=== PATIENT | male | born 1960 | race Caucasian/White ===

== ENCOUNTER → 2016-10-31 | Outpatient (CLI) | payer SELFPAY ==
[~2016-10-31] MED LIST: AMBIEN 10MG TAB10 MG PO; ATIVAN GENERIC 11 MG PO; ATIVAN0.5 MG PO; CIPRO 500MG TA500 MG PO; COZAAR50 MG OR; FLEXERIL10 MG PO; HYDROCODONE-APA1 TA1 PO; KEFLEX 500MG.500 MG PO; LEVAQUIN500 MG PO; LEVAQUIN750 MG PO; LISINOPRIL AND1 TAB PO; LISINOPRIL/HCTZ1 TA3 FT; LORTAB 5/500 501 TAB PO; MEDROL 4MG. DOSE4 MG PO; NAPROSYN 500MG500 MG PO; NORCO 325 MG-51 TAB PO; OMEPRAZOLE20 MG PO; PERCOCET 10 MG1 EACH PO; PERCOCET 5/3251 EACH PO; PHENERGAN25 M3 PO; PREDNISONE 20MG20 MG PO; TESSALON PERLE100 MG PO; ULTRAM ER100 MG PO; VICODIN 5/500 T1 TAB PO; VOLTAREN75 MG PO; XANAX 1MG TABLET1 MG PO; XANAX0.5 MG PO; XANAX1 M1 PO; ZOFRAN4 MG PO
[2016-10-31 14:51] LABS: HEMOGLOBIN 15.3 g/dL (14.1-18.0); LYMPH # 1.3 K/mm3 (0.7-4.5); LYMPH % 26.7 % (10-50)
[2016-10-31 15:29] LABS: AMPHETAMINES/METAMPHETAMINES NEGATIVE ng/mL (<1000)
[2016-10-31 15:47] LABS: BUN 7 mg/dL (7-18)
[2016-10-31 16:02] LABS: GFR (ESTIMATED) 100 ML/MIN (>60)
== END ==
LOC: LAB 13:49
PROVIDERS: Emergency Medicine
DX: Z79.899 Other long term (current) drug therapy (principal); I10 Essential (primary) hypertension

== ENCOUNTER → 2017-07-08 | Emergency (ER) | payer MEDICARE ==
[~2017-07-08] VITALS: Ht 190.5 cm; Wt 99.8 kg
[~2017-07-08] MED LIST changes: +PREDNISONE20 MG PO; +PROMETHAZINE D120 ML PO; +TESSALON PERLE100 M1 PO; +TYLENOL WITH CO1 TA1 PO
--- NOTE | 2017-07-08 09:25 | Emergency Room Report ---
History of Present Illness Time Seen by MD Mckeon Presenting Problem in Triage Pt arrived:Walked Presenting Problem:COUGH, CONGESTION, CHILLS X2 WEEKS Onset of symptoms date/time:/ or onset unknown for:MEDICAL HX UNKNOWN Treatment Prior to Arrival: [employer] Provided by: Sepsis Risk Assessment: Temp: 98.3 B/P: 155/45 MAP: 81 Pulse: 84 Resp: 18 Recent fever? N Clinical Suspician of Infection? N Mental Status: 1 - Regular (Normal Baseline) Sepsis Risk:Low Sepsis Risk Have you (or family members/close friends) recently traveled outside the [place]? N If Yes, where/when: Have you had exposure to infectious disease within the past month? N TB? Other? Specify: Comment The patient complains of a respiratory illness for 2 weeks. He has a cough, fevers, chills. He is producing large amounts of purulent sputum. His abdomen is sore from coughing. He has no appetite and feels generally weak with malaise. He does not have a history of chronic obstructive pulmonary disease or pulmonary disease, but he is a smoker. ALLERGIES Coded Allergies: erythromycin base (Mild, NA-NAUSEA 01/02/16) Home Medications Reported Medications LISINOPRIL/HYDROCHLOROTHIAZIDE (Lisinopril-Hctz 20-12.5 MG Tab) 1 TAB PO DAILY Alprazolam (Xanax 1MG) 1 MG PO TID #90 TAB ACETAMINOPHEN WITH CODEINE (Tylenol With Codeine #3 Tablet) 1 TAB PO BID Omeprazole (Omeprazole 20MG) 20 MG PO DAILY History Medical History General CAD? No Angina: No [place]: No Hypertension? Yes Hyperlipidemia? No CHF? No DVT? No PE? No COPD? No Asthma? No Anemia? No GERD? No Gastric ulcers? No GI Bleed? No Hernia? No Thyroid Problems? No Hypothyroidism? No CVA? No Seizures? No Diabetes? No Renal Insuffiency? No End Stage Renal Disease? No UTI? No Stones? No BPH? No GB Disease: Yes Nephritic Syndrome? No Asplenia? No Hepatitis? No Sickle Cell Disease? No Arthritis? Yes Migraines? No Cataracts? No Glaucoma? No MRSA? No HIV? No TB? No Anxiety? No Depression? 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 No Immunization Hx DT/Tetanus 2012 Flu UNKN Pneumonia UNKN Surgical Hx Previous Surgery?Y Gallbladder Tonsils HERNIA REPAIR SKIN CANCER REMOVAL Appy Family History Family Hx Diabetes Yes CAD Yes Hypertension Yes Hyperlipidemia Yes Cancer Yes TB No Social History Smoking Hx Smoker: Current Every Day Smoker Tobacco: Yes Type Cigarettes Packs/day < 1 Pack Alcohol Alcohol: No Review of Systems All Other Systems Reviewed and Negative Constitutional chills, fever, malaise, weakness Respiratory cough, shortness of breath, wheezing Gastrointestinal abdominal pain Physical Exam Vital Signs Vital Signs Date Time Temp Pulse Resp B/P Pulse O2 O2 Flow FiO2 Ox Delivery Rate 07/08 1200 98.3 84 18 148/82 98 07/08 1015 94 ROOM AIR 07/08 09 98.3 84 18 155/45 98 General Appearance frequent cough Eye Exam - bilateral eye normal exam, bilateral eye PERRL, bilateral eye EOMI Ear, Nose, Throat hearing grossly normal, normal ENT inspection Neck normal inspection, non-tender, supple, full range of motion Respiratory Status Yes: trachea midline, chest symmetrical, productive cough. No: respiratory distress. Lung Sounds bilateral: wheezing. Cardiovascular normal exam, regular rate/rhythm, no peripheral edema, no gallop, no JVD, no murmur, no rub, normal peripheral pulses Peripheral Pulses Pulses normal Yes Gastrointestinal normal bowel sounds, normal exam, non tender, soft, no organomegaly Extremities non-tender, normal range of motion, normal inspection Neurologic alert, normal exam, oriented x 3 Mental status normal mood/affect Skin intact, normal color, warm/dry Medical Decision Making LABS/Meds/Orders Pt receiving controlled substance in ED? No Results/Orders Laboratory Tests 07/08/17919: Lactic Acid 1.1 07/08/17919: Sodium 138, Potassium 3.6, Chloride 99, Carbon Dioxide 31, BUN 8, Creatinine 0.9 , Estimated Creat Clear 126, Estimated GFR (MDRD) 87, Glucose 104, Calcium 9.0, Total Bilirubin 1.7 H, AST 16, ALT 28, Alkaline Phosphatase 73, Creatine Kinase 79, CK-MB (CK-2) Rel Index 0.6, CK and CKMB Interp < 0.5, Troponin I < 0.02, Total Protein 8.1, Albumin 3.9, Globulin 4.2 H, Albumin/Globulin Ratio 0.9 L, WBC 10.3, RBC 4.72, Hgb 15.6, Hct 47.1, MCV 99.8 H, RDW 12.8, Plt Count 146, MPV 9.1, Gran % 77.6, Gran # 8.0, Lymphocytes % 13.7, Monocytes % 7.7, Eosinophils % 0.7, Basophils % 0.3, Lymphocytes # 1.4, Monocytes # 0.8, Eosinophils # 0.1, Basophils # 0.0, PUBS MCHC 33.2, MCH 33.2 H Current Medication Orders Sig/[place] Start time Last Medication Dose Route Stop Time Status Admin Albuterol 0 .STK-MED ONE 07/08 1111 DC IH Miscellaneous 0 .STK-MED ONE 07/08 1111 DC XX Albuterol 2 PUFFS ONCE ONE 07/08 1100 DC 07/08 IH 07/08 1101 1115 Miscellaneous 1 UNIT ONCE ONE 07/08 1100 DC 07/08 XX 07/08 1101 1115 Albuterol/Ipratropium 0 .STK-MED ONE 07/08 1009 DC INH Levofloxacin/Dextrose 150 ML .STK-MED ONE 07/08 1003 DC IV Methylprednisolone 0 .STK-MED ONE 07/08 1003 DC Sodium Succinate .ROUTE Albuterol/Ipratropium 3 ML ONCE ONE 07/08 1000 DC 07/08 INH 07/08 1001 1015 Methylprednisolone 125 MG ONCE ONE 07/08 1000 DC 07/08 Sodium Succinate IV 07/08 1001 1005 Levofloxacin/Dextrose 150 ML ONCE ONE 07/08 0945 DCr 07/08 IV 07/08 1114 1006 Sodium Chloride 10 ML PRN PRN 07/08 930 AC IV 07/09 919 Orders Procedure Date/time Status RT Smoking Cessation 3-10min S 07/08 1242 Active RT Pulse Oximetry, Provide 07/08 124 Active RT Metered Dose Inhaler, INITI 07/08 124 Active RT Aerosol Treatment, Provide 07/08 1242 Active RT REQUEST ALBUTEROL INHALER 07/08 1055 Active RT REQUEST DUONEB 07/08 948 Active CULTURE, SPUTUM 07/08 948 Active 12 LEAD EKG-JOSEPH (INITIAL) 07/08 930 Active ELECTROCARDIOGRAM REQUEST 07/08 919 Active IV SALINE LOCK 07/08 919 Active CULTURE, BLOOD 07/08 919 Active LACTIC ACID 07/08 919 Complete CBC WITH AUTO DIFF 07/08 919 Complete CARDIAC ENZYMES 07/08 919 Complete CHEM 12 PROFILE 07/08 919 Complete CM/EKG CM/EKG Comments EKG interpreted by Sincere Adams MD: Rhythm: sinus Rate: 83 [place]: normal Ectopy: none Conduction: normal ST Segment Changes: none T Wave Changes: none Q Waves: none No evidence of acute ischemia or injury XRAY/CT/US XRAY/CT/US XRAY chest Comment Chest x-ray interpreted by Sincere Adams M.D. stranding in the bases. No pneumothorax, pleural effusion, or wide mediastinum. Progress - 10:50 AM: Patient states he feels better and would like to try outpatient treatment. Departure Departure Disposition DC Home or Self Care(routine) Clinical Impression Primary Impression: Acute bronchitis Qualifiers: Bronchitis organism: unspecified organism Qualified Code: J20.9 - Acute bronchitis, unspecified Secondary Impressions: Bronchospasm Condition STABLE Referrals Brigitte YOUNG,Jonathan Donnelly (Family) Patient Instructions DI for Acute Bronchitis Additional Instructions Using inhaler 2 puffs every 4-6 hours as needed for shortness of breath or wheezing. Antibiotics, steroids, and cough medication as prescribed. Additional instructions for ACUTE BRONCHITIS: Use Tylenol or Ibuprofen for pain or fever. Rest and plenty of fluids. Return immediately if you have an uncontrollable fever greater than 102 degrees, severe headache or neck stiffness, difficulty breathing or shortness of breath, persistent vomiting, severe sore throat or inability to swallow. See your physician if not improving in 4-5 days. Prescriptions Current Visit Scripts Levofloxacin (Levaquin 750MG Tab) 750 MG PO DAILY #4 TAB Benzonatate (Tessalon Perle) 100 MG PO TID #15 SGL Prednisone (Prednisone 20MG Tab) 20 MG PO BID #10 TAB PROMETHAZINE/DEXTROMETHORPHAN (Promethazine-Dm Syrup) 5 ML PO Q4HP PRN cough #120 ML ED Critical Care Critical Care No at 1348
[2017-07-08 09:45] LABS: HEMOGLOBIN 15.6 g/dL (14.1-18.0); LYMPH # 1.4 K/mm3 (0.7-4.5); LYMPH % 13.7 % (10-50)
--- NOTE | 2017-07-08 09:50 | RADIOLOGY REPORT PS360 ---
CHEST(2 VIEWS-NOT PORTABLE) COMPARISON: PA and lateral chest 04/08/2016 HISTORY: Pain TECHNIQUE: PA and lateral to FINDINGS: The lung puri are well expanded and appear clear of infiltrate. The cardiac silhouette and vascularity are normal and is no pleural fluid. There are mild degenerative changes thoracic spine. IMPRESSION: Nonacute chest findings
[2017-07-08 10:05] LABS: BUN 8 mg/dL (7-18); GFR (ESTIMATED) 87 ML/MIN (>60)
[2017-07-08 12:00] VITALS: BP 148/82
--- OUTSIDE RECORDS SUMMARY | 2017-07-14 12:48 | External Medical Summary Rpt | CCD ---
Author Author , MELLISSA Organization MELLISSA Address Unknown Phone [email or web address] Care Team Providers Care Surgery Attendant Name Role Phone ALFARIS MOH, ALFARIS Unavailable Unavailable MOH GI HAZEL, GI HAZEL Unavailable Unavailable GI HAZEL, GI HAZEL Unavailable Unavailable ALLRAN JR GIN, ALLRAN Unavailable Unavailable JR GIN WILLIE GOVEA MD, PSC, Unavailable Unavailable WILLIE GOVEA MD, PSC BEINEKE YANI, BEINEKE Unavailable Unavailable YANI BUX ANJ, BUX ANJ Unavailable Unavailable EDDIE AMILCAR, Unavailable Unavailable EDDIE AMILCAR EDDIE AMILCAR, Unavailable Unavailable EDDIE AMILCAR DUFF PO, DUFF PO Unavailable Unavailable SIMIN DIVINA, SIMIN Unavailable Unavailable DIVINA [facility] Unavailable Unavailable INC, [facility] Unavailable Unavailable HOSPITAL P, [facility], Unavailable Unavailable [facility] Unavailable [place]available [place], [facility] DURANT ANGELLA, DURANT ANGELLA Unavailable Unavailable [facility] Jeanette Esposito MD, Unavailable Unavailable Jeanette Esposito MD [facility] NURSE Unavailable Unavailable PRACTITIONER GR, KMS NURSE PRACTITIONER GR [facility] ARTHUR CRI, ARTHUR CRI Unavailable Unavailable AMANDA GOVEA MD, AMANDA Unavailable Unavailable [facility], Un[facility]available [facility], [facility] PICKLESIMER JR GORAN, Unavailable Unavailable PICKLESIMER JR GORAN PICKLESIMER JR GORAN, Unavailable Unavailable PICKLESIMER JR GORAN PURDOM MAT, PURDOM Unavailable Unavailable MAT [facility], Unavailable Unavailable [facility], Unavailable Unavailable [facility] LISA KAREEN, LISA KAREEN Unavailable Unavailable LISA KAREEN, LISA KAREEN Unavailable Unavailable [facility] Unavailable Unavailable [id number] [address] [id number], [facility] [id number] # [id number] GATITO RAFIA, GATITO RAFIA Unavailable Unavailable [facility] JOSE GUADALUPE FOX, JOSE GUADALUPE FOX Unavailable Unavailable Purpose Continuity of Care Document - 03-10-2013 through 2016 Problems Code Diagnosis DOS Provider Status I10 ESSENTIAL 04-08-2016 [facility] HYPERTENSIO INC N J209 ACUTE 04-08-2016 [facility] UNSPECIFIED INC J40 BRONCHITIS 04-08-2016 [facility] NOT [facility]YSICIANS, SPECIFIED PLLC ACUTE OR CHRONIC Z720 TOBACCO USE 04-08-2016 [facility] INC J189 PNEUMONIA 01-02-2016 [facility] UNSPECIFIED PHYSICIANS, ORGANISM PLLC R0989 OT SPEC SX 01-02-2016 [facility] CIRC & RESP SYS R109 UNSPECIFIED 11-23-2015 [facility] ABDOM[facility]AL [facility]YS[facility]IANS PAIN GROUP R197 DIARRHEA 11-23-2015 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 PAIN RIGHT PHYSICIANS UPPER GROUP QUADRANT 4019 UNSPECIFIED 11-27-2014 [facility] P N 39259 DIVERTICULO 11-27-2014 [place] 7802 SYNCOPE AND 11-27-2014 [facility] P 40874 CHEST PAIN 11-27-2014 [facility] 56470 ABDOMINAL 11-27-2014 [place] OTHER MEDICAL SPECIFIED IMAGING ASS SITE V5832 ENCOUNTER 09-22-2014 [facility] NURSE FOR REMOVAL PRACTITIONE OF SUTURES R GR V6709 FOLLOW-UP 09-22-2014 [facility] NURSE EXAMINATION PRACTITIONE FOLLOWING R GR OTHER SURGERY 7020 ACTINIC 09-09-2014 [facility] V1083 PERSONAL 09-09-2014 [facility] MALIGNANT NEOPLASM SKIN 05972 CALCU 04-16-2014 PICKLESIMER GALLBLADD JR GORAN W/OTH CHOLECYST W/O MENTION OBST 47497 CALCU 04-16-2014 [facility] GALLBLADD PHYSICIANS W/O MENTION GROUP CHOLECYST/O BST 5756 CHOLESTEROL 04-16-2014 PICKLESIMER OSIS OF JR GORAN GALLBLADDER 5758 OTHER 04-09-2014 [place] SPECIFIED [facility]ICAL DISORDER OF [facility]ING [facility] GALLBLADDER 01080 ABDOMINAL 03-30-2014 [place] PAIN, MEDICAL UNSPECIFIED IMAGING ASS SITE 8472 LUMBAR 02-16-2014 LISA KAREEN SPRAIN AND STRAIN E9289 UNSPECIFIED 02-16-2014 LISA KAREEN ACCIDENT 4660 ACUTE 11-27-2013 GI HAZEL BRONCHITIS 496 CHRONIC 11-21-2013 EDDIE AIRWAY AMILCAR OBSTRUCTION NEC 71906 OTHER 11-21-2013 EDDIE DISEASES OF AMILCAR LUNG NOT ELSEWHERE CLASSIFIED 7862 COUGH 11-21-2013 [facility] INC 81708 OSTEOARTHRO 10-31-2013 [facility] WHETHER GEN/LOC UNSPEC SITE 04676 PAIN IN 10-31-2013 [facility], DIAGNOSTICS MULTIPLE SITES 250.00 250.00 DIAB 03-10-2013 [facility], TYPE Hospital II OR UNSPEC TYPE, NOT UNCNTRLD 305.1 305.1 03-10-2013 [place] TOBACCO USE [facility] 401.9 401.9 03-10-2013 [facility] 784.0 784.0 03-10-2013 [facility] 787.03 787.03 03-10-2013 [place] VOMITING [facility] 916.4 916.4 03-10-2013 [place] INSECT BITE [facility] & LEG [facility] Allergies, Adverse Reactions, Alerts Type Propensity to adverse reactions to drug Adverse Reaction to Substance Substance Reaction Severity Erythromycin NA-NAUSEA Mild Medications Na ND Rx Da Fi Fi Am Da Di Ph RX Ph St me C No te ll ll ou ys ag ar # ys at rm s nt no ma ic us Or Da si cy ia de te s n re d AL 59 06 07 2 90 30 HO 40 AL Ac NE 76 -2 -1 0. ME 07 LE ti AZ 23 6- 8- 00 TO 74 N ve OL 72 20 20 0 WN 5 BR AM 10 14 14 IA 1 4 PH N AR L MG MA CY TA BL OF ET CY NT HI AN A HY 00 07 07 0 24 [address] 59 -1 -1 0. ME 08 LR ti OC 13 6- 6- 00 TO 03 AN ve OD 20 20 20 0 WN 3 ON 20 14 14 JR -A 5 PH CE AR CH TA MA AR UT CY LE NO S PH OF F EN CY 5- NT 32 HI 5 AN A LI 68 07 07 0 60 30 HO 60 AL Ac SI 18 -1 -1 0. ME 25 LE ti NO 00 4- 4- 00 TO 77 N ve NE 51 20 20 0 WN 1 BR IL 90 14 14 IA -H [address] AR L Z MA 20 CY -1 2. OF 5 MG CY NT TA HI B AN A TR 00 07 07 0 16 4 RI 10 AL Ac AM 09 -0 -0 0. TE 39 LR ti AD 30 9- 9- 00 05 AN ve OL 05 20 20 0 AI 6 80 14 14 D JR HC 1 PH L AR CH 50 MA AR CY LE MG S 03 F TA 93 BL 8 ET # 03 93 NE 00 06 06 0 15 2 RI 10 AL Ac OM 60 -2 -2 0. TE 37 FA ti ET 35 9- 9- 00 78 RI ve GRIFFIN 43 20 20 0 AI 0 S ZI 82 14 14 D MO NE 1 PH GRIFFIN AR ME 25 MA D CY MG 03 TA 93 BL 8 ET # 03 93 SO 00 06 0 No DI 40 -0 UM 97 9- Lo 98 20 ng CH 30 13 er LO 9 RI Ac DE ti ve 0. 9% SO BEATRIZ TI ON ON 00 06 0 No DA 64 -0 NS 16 9- Lo ET 08 20 ng RO 02 13 er N 5 HC Ac L ti 4 ve MG /2 ML AL Sa 63 06 0 No li 80 -0 ne 70 9- Lo 10 20 ng Fl 07 13 er us 5 h Ac 10 ti ML ve Sy ri ng e HY [address] 40 -0 OC 60 9- Lo OD 36 20 ng ON 56 13 er -A 2 CE Ac TA ti UT ve NO PH EN 5- 32 5 Vital Signs 03-10-2013 16:09 Name Value Interpretat Reference Comment ion Range Body 97.9 [degF] Temperature BP 85 mm[Hg] Diastolic BP Systolic 145 mm[Hg] Heart 84 /min Rate/Pulse O2% 97 % Respiratory 20 /min Rate 03-10-2013 16:07 Name Value Interpretat Reference Comment ion Range Body 97.9 [degF] Temperature BP 85 mm[Hg] Diastolic BP Systolic 145 mm[Hg] Heart 84 /min Rate/Pulse O2% 97 % Respiratory 20 /min Rate Results Labs Lab Lab Date Result Refere Interp Status Commen Order Detail nces retati t Range on Comprehensive metabolic panel (07-08-2017 09:20) Protein = 8.1 6.4-8.2 complet total 017 gm/dL ed ser/kimberlyn 09:20 s ALT = 28 12-78 complet (SGPT) 017 U/L ed ser/kimberlyn 09:20 s Serum = 16 15-37 complet or 017 U/L ed plasma 09:20 asparta te aminotr ansfera Serum = 138 136-145 complet sodium 017 mmoL/L ed measure 09:20 ment Serum = 3.6 3.5-5.1 complet potassi 017 mmoL/L ed um 09:20 measure ment Serum = 104 74-106 complet or 017 mg/dL ed plasma 09:20 glucose measure ment (mas Serum = 4.2 1.3-3.2 complet globuli 017 gm/dL ed n 09:20 measure ment (mass/v olume) Estimat = 87 >60 complet ed 017 ML/MIN ed glomeru 09:20 lar filtrat ion rate (GF Comment: REFERENCE RANGE: >60 ML/MIN/1.73 SQUARE METERS Comment: If this patient is -[place], then multiply the Comment: result by 1.210. Estimat = 126 50-200 complet ion of 017 ML/MIN ed creatin 09:20 ine renal clearan ce Serum = 0.9 0.70-1. complet or 017 mg/dL 30 ed plasma 09:20 creatin ine measure ment ( Carbon = 31 21.0-32 complet dioxide 017 mmoL/L .0 ed 09:20 measure ment Serum = 99 98-107 complet or 017 mmoL/L ed plasma 09:20 chlorid e measure ment (mo Serum = 9.0 8.5-10. complet or 017 mg/dL 1 ed plasma 09:20 calcium measure ment (mas Serum = 8 7-18 complet or 017 mg/dL ed plasma 09:20 urea nitroge n measure men Serum = 1.7 0.2-1.0 complet or 017 mg/dL ed plasma 09:20 total bilirub in measure m Serum = 73 46-116 complet or 017 U/L ed plasma 09:20 alkalin e phospha tase carlos Serum = 3.9 3.4-5.0 complet or 017 gm/dL ed plasma 09:20 albumin measure ment (mas Serum = 0.9 1.1-1.8 complet or 017 ed plasma 09:20 albumin /globul in mass ra Cardiac enzymes (07-08-2017 09:20) Serum < 0.02 0.00-0. complet or 017 ng/mL 06 ed plasma 09:20 troponi n i.cardi ac measu Serum = 79 39-308 complet or 017 U/L ed plasma 09:20 creatin e kinase measure m Serum < 0.5 0.0-3.6 complet or 017 ng/mL ed plasma 09:20 creatin e kinase MB measu Serum = 0.6 0-4.0 complet or 017 U/L ed plasma 09:20 creatin e kinase MB (CK-M CBC w auto diff (07-08-2017 09:20) Blood = 10.3 4.8-10. complet leukocy 017 K/MM3 8 ed anton 09:20 count (number /volume ) Automat = 12.8 11.5-17 complet ed 017 % .5 ed erythro 09:20 cyte distrib ution width Red = 4.72 4.6-6.2 complet blood 017 M/mm3 ed cell 09:20 count Blood = 146 142-424 complet platele 017 K/mm3 ed t count 09:20 Automat = 9.1 7.4-10. complet ed 017 fl 4 ed blood 09:20 platele t mean volume carlos Beaver % = 7.7 % 1.7-9.3 complet 017 ed 09:20 Absolut = 0.8 0.1-1.0 complet e 017 K/mm3 ed monocyt 09:20 e count Automat = 99.8 82.2-97 complet ed 017 fl .8 ed erythro 09:20 cyte mean corpusc ular v Automat = 33.2 31.8-35 complet ed 017 g/dl .4 ed erythro 09:20 cyte mean corpusc ular h Mean = 33.2 27-31.2 complet corpusc 017 pg ed ular 09:20 hemoglo bin (MCH) determ Lymphoc = 13.7 10-50 complet yte 017 % ed count, 09:20 blood, automat ed Absolut = 1.4 0.7-4.5 complet e 017 K/mm3 ed lymphoc 09:20 yte count Blood = 15.6 14.1-18 complet hemoglo 017 g/dL .0 ed bin 09:20 measure ment (mass/v olum Blood = 47.1 42.0-52 complet hematoc 017 % .0 ed rit 09:20 (volume fractio n) Granulo = 77.6 37.0-80 complet cyte 017 % .0 ed percent 09:20 age Blood = 8.0 1.3-8.0 complet granulo 017 K/mm3 ed cytes 09:20 automat ed count (numb Automat = 0.7 % 0.1-12. complet ed 017 0 ed blood 09:20 eosinop hils/10 0 leukocy t Automat = 0.1 0.0-0.4 complet ed 017 K/mm3 ed blood 09:20 eosinop hil count Baso % = 0.3 % 0.1-2.0 complet 017 ed 09:20 Automat = 0.0 0-0.2 complet ed 017 K/MM3 ed blood 09:20 basophi l count (count/ vo Blood lactic acid measurement (moles/vol (07-08-2017 09:20) Blood = 1.1 0.4-2.0 complet lactic 017 mmol/L ed acid 09:20 measure ment (moles/ vol Drugs identified in Urine by Screen method (04-19-2017 09:35) Ampheta NEGATIV <1000 complet mine 017 E ed [Presen 09:35 ce] in Urine by Screen method 11-Hydr NEGATIV <50 complet oxy 017 E ed delta-9 09:35 tetrahy drocann abinol [Presen ce] in Unspeci fied specime n Urinalysis dipstick W Reflex Microscopic panel in Urine (04-09-2017 15:25) Bacteri 3+ O complet a 017 ed [Presen 15:25 ce] in Urine sedimen t by Light microsc opy Hyaline 5-10 NONE complet casts 017 ed [Presen 15:25 ce] in Urine sedimen t by Light microsc opy Mucus 1+ NONE complet [Presen 017 ed ce] in 15:25 Urine sedimen t by Light microsc opy Epithel 3-5 OCC complet ial 017 ed cells.s 15:25 quamous [Presen ce] in Urine sedimen t by Microsc opy high power field Leukocy 3-5 O complet anton 017 wbc/hpf ed [#/volu 15:25 me] in Urine Urinalysis dipstick W Reflex Microscopic panel in Urine (04-09-2017 15:25) Appeara Clear CLEAR complet nce of 017 ed Urine 15:25 Bilirub NEGATIV NEG complet in 017 E ed [Presen 15:25 ce] in Urine by Test strip Erythro NEGATIV NEG complet cytes 017 E ed [Presen 15:25 ce] in Urine Color YELLOW YELLOW complet of 017 ed Urine 15:25 Ketones NEGATIV NEG complet 017 E ed [Presen 15:25 ce] in Urine by Automat ed test strip Mucus NEGATIV NEG complet [Presen 017 E ed ce] in 15:25 Urine sedimen t by Light microsc opy Nitrite NEGATIV NEG complet 017 E ed [Presen 15:25 ce] in Urine by Test strip Urobili 0.2 NEG complet nogen 017 ed [Presen 15:25 ce] in Urine by Test strip COMPREHENSIVE METABOLIC PANEL (03-10-2013 14:41) Glucose 114 74-106 complet 013 mg/dL ed Bld-mCn 14:41 c BUN 5 mg/dL 7-18 complet Bld-mCn 013 ed c 14:41 Creat 1.0 0.8-1.3 complet SerPl-m 013 mg/dL ed Cnc 14:41 ESTIMAT 115 50-200 complet ED 013 ML/MIN ed CREATIN 14:41 INE CLEARAN CE GFR 78 Greater complet (ESTIMA 013 ML/MIN than ed JESSE) 14:41 60 Sodium 139 136-145 complet SerPl-s 013 mmoL/L ed Cnc 14:41 Potassi 3.4 3.5-5.1 complet um 013 mmoL/L ed SerPl-s 14:41 Cnc Chlorid 101 98-107 complet e 013 mmoL/L ed SerPl-s 14:41 Cnc CO2 29 21.0-32 complet SerPl-s 013 mmoL/L .0 ed Cnc 14:41 Calcium 8.7 8.5-10. complet 013 mg/dL 1 ed SerPl-m 14:41 Cnc Prot 03-10-2 7.8 6.4-8.2 complet SerPl-m 013 gm/dL ed Cnc 14:41 Albumin 09-2 4.3 3.4-5.0 complet 013 gm/dL ed SerPl-m 14:41 Cnc Globuli 2 3.5 1.3-3.2 complet n 013 gm/dL ed Ser-mCn 14:41 c Albumin 03-10-2 1.2 UNK 1.1-1.8 complet /Glob 013 ed SerPl-m 14:41 Rto Bilirub 2 0.5 0.2-1.0 complet 013 mg/dL ed SerPl-m 14:41 Cnc AST 03-10-2 22 U/L 15-37 complet SerPl-c 013 ed Cnc 14:41 ALT 41 U/L 30-65 complet SerPl-c 013 ed Cnc 14:41 ALP 2 83 U/L 50-136 complet SerPl-c 013 ed Cnc 14:41 LIPASE (03-10-2013 14:41) LIPASE 03-10-2 157 U/L 73-393 complet 013 ed 14:41 CBC with AUTO DIFF (03-10-2013 14:41) WBC # 09-2 6.7 4.8-10. complet Bld 013 K/MM3 8 ed Auto 14:41 RBC # 03-10-2 5.08 4.6-6.2 complet Bld 013 M/mm3 ed Auto 14:41 Hgb 03-10-2 17.0 14.1-18 complet Bld-mCn 013 g/dL .0 ed c 14:41 Hct Fr 03-10-2 49.9 % 42.0-52 complet Bld 013 .0 ed 14:41 MCV RBC 03-10-2 98.4 fl 82.2-97 complet 013 .8 ed 14:41 MCH RBC 2 33.6 pg 27-31.2 complet Qn 013 ed Auto 14:41 MEAN 34.1 31.8-35 complet CORPUSC 013 g/dl .4 ed ULAR 14:41 HGB CONC RDW RBC 2 13.7 % 11.5-17 complet Auto 013 .5 ed 14:41 Platele 06-09-2 176 142-424 complet t Bld 013 K/mm3 ed Ql 14:41 Manual MEAN -09-2 8.3 fl 7.4-10. complet PLATELE 013 4 ed T 14:41 VOLUME Granulo 06-09-2 71.8 % 37.0-80 complet cytes 013 .0 ed Fr Bld 14:41 Auto LYMPH % 06-09-2 19.8 % 10-50 complet 013 ed 14:41 Monocyt 06-09-2 6.6 % 1.7-9.3 complet es Fr 013 ed Bld 14:41 Auto Eosinop 06-09-2 1.4 % 0.1-12. complet hil Fr 013 0 ed Bld 14:41 Auto Basophi 06-09-2 0.5 % 0.1-2.0 complet ls Fr 013 ed Bld 14:41 Auto Granulo 06-09-2 4.8 1.3-8.0 complet cytes # 013 K/mm3 ed Bld 14:41 Auto Lymphoc 06-09-2 1.3 0.7-4.5 complet ytes Fr 013 K/mm3 ed Bld 14:41 Auto Monocyt 06-09-2 0.4 0.1-1.0 complet es # 013 K/mm3 ed Bld 14:41 Auto Eosinop 06-09-2 0.1 0.0-0.4 complet hil # 013 K/mm3 ed Bld 14:41 Auto Basophi 06-09-2 0.0 0-0.2 complet ls # 013 K/MM3 ed Bld 14:41 Auto Procedures Procedure DOS Code Location Performer Comment UNCLASSIF J3490 ON[facility]IA ROUSSE[facility] IED DRUGS 6 [facility] INC INC RADIOLOGI 75435 ONELIA ROUSSEAU C EXAM 6 [facility] CHEST 2 INC INC VIEWS FRONTAL&L ATERAL BASIC 00462 ONELIA ROUSSEAU METABOLIC 6 [facility] PANEL INC INC CALCIUM TOTAL COLLECTIO 86009 ONELIA ROUSSEAU N VENOUS 6 [facility] BLOOD INC INC VENIPUNCT URE RADIOLOGI 91606 [place] [facility] EXAM 6 MEDICAL AMILCAR CHEST 2 IMAGING VIEWS ASS FRONTAL&L ATERAL INJECTION J0696 [facility] DIV[facility] CEFTRIAXO S GROUP NE SODIUM PER 250 MG INJECTION J1040 [facility] DIVINA METHYLPRE S GROUP DNISOLONE ACETATE 80 MG THERAPEUT 40116 [facility] 5 PHYSICIAN DIVINA PROPHYLAC S GROUP TIC/DX INJECTION SUBQ/IM OPIATE G6056 ON[facility]IA ROUSSE[facility] DRUG AND 5 [facility] METABOLIT INC INC ES EACH PROCEDURE CREATINE 02935 ONELIA ROUSSEAU KINASE 5 [facility] [place] [place] [address] ON[facility]IA ROUSSE[facility] LIPASE 5 [place] [address] ON[facility]OUS[facility] AMYLASE 5 [facility] INC INC CREATINE 34960 ONELIA ROUSSEAU KINASE MB 5 [facility] FRACTION INC INC ONLY COMPREHEN 30247 ONELIA ROUSSEAU SIVE 5 [facility] METABOLIC INC INC PANEL GLUC BLD 99765 ONELIA ROUSSEAU GLUC MNTR 5 [facility] DEV INC [place] [address] ONELIA ROUSSEAU TROPONIN 5 [facility] QUANTITAT INC INC AURE BLOOD 45300 ONELIA ROUSSEAU COUNT 5 [facility] COMPLETE INC INC AUTO&AUTO DIFRNTL WBC RADIOLOGI 86759 ONELIA ROUSSEAU C EXAM 5 [facility] CHEST 2 INC INC VIEWS FRONTAL&[place] [address] ONELIA ROUSSEAU ABDOMEN & 5 [facility] PELVIS INC INC W/O CONTRAST MATERIAL URNLS DIP 51062 ONELIA ROUSSEAU 5 [facility] STICK/TAB INC INC [place] [address] [facility] PURDOM SURG 4 Y OF MAT PATHOLOGY [facility] GROSS&DIVINA ROSCOPIC EXAM EXC B9 92978 [place] GAT[place] RAFIA LESION 4 MEDICAL MRGN XCP SERV SK TG FOUNDATIO T/A/L N 0.6-1.0 CM DESTRUCTI 72879 [place] ON 4 MEDICAL PREMALIGN SERV ANT FOUNDATIO LESION N 1ST DESTRUCTI 13827 [place] RAF[place] ON 4 MEDICAL PREMALIGN SERV ANT FOUNDATIO LESION N 2-14 EA LEVEL III 19411 PICKLESIM PICKLESIM SURG 4 ER JR GORAN ER JR GORAN PATHOLOGY GROSS&DIVINA ROSCOPIC EXAM PRESSURIZ 60716 ONELIA ROUSSEAU ED/NONPRE 4 [facility] SSURIZED INC INC INHALATIO N TREATMENT LAPAROSCO 15154 [facility] MARIVEL [place] PY SURG 4 PHYSICIAN [place] [address] [place] HOLDENINEANABELLE ABDOMINAL 4 MEDICAL YANI REAL IMAGING TIME ASS W/[place] [address] [facility] ABDOMEN & 4 MEDICAL AMILCAR PELVIS IMAGING W/CONTRAS ASS T MATERIAL RADIOLOGI 26515 ONELIA ROUSSEAU C EXAM 4 [facility] CHEST 2 INC INC VIEWS FRONTAL&L ATERAL RHEUMATOI 97035 [facility] FA[facility] 4 DIAGNOSTI DIAGNOSTI QUANTITAT CS CS AURE ANTINUCLE 15168 [facility] AR 4 DIAGNOSTI DIAGNOSTI ANTIBODIE CS CS S CASA CYCLIC 69422 [facility] CITRULLIN 4 DIAGNOSTI DIAGNOSTI ATED CS CS PEPTIDE ANTIBODY C-REACTIV 24255 [facility] E PROTEIN 4 DIAGNOSTI DIAGNOSTI CS CS COLLECTIO 94142 [facility] N VENOUS 4 DIAGNOSTI DIAGNOSTI BLOOD CS CS VENIPUNCT URE Encounters Encounter Start End Date Code Location Performer Type Date EMERGENCY 57735 [facility]OW/MODER SEVERITY EMERGENCY 71567 RAZA PERALES 6 6 [facility]YS[facility] HIGH/URGE NT SEVERITY HOSPITAL ONELIA - 6 6 [facility] INC T HOSPITAL ONELIA - 6 6 [facility] OUTPATIEN INC T EMERGENCY 45619 RAZA DUVAL 6 6 PHYSICIAN [facility] DEPARTMEN S, PLLC T VISIT MODERATE SEVERITY OFFICE 15441 [facility] MARIVEL QUEVEDO 6 6 PHYSICIAN GIN T VISIT S GROUP 15 MINUTES OFFICE 31137 ONELIA OUTPATIEN 6 6 [facility] T VISIT INC 10 MINUTES OFFICE 55383 WILLIESERENA STUART PO OUTPATIEN 6 6 MD XUAN, T VISIT PSC 15 MINUTES HOSPITAL ONELIA - 6 6 [facility] OUTPATIEN INC T OFFICE 53396 [facility] SIMIN OUTPATIEN 5 5 PHYSICIAN DIVINA T VISIT S GROUP 15 MINUTES HOSPITAL ONELIA - 5 5 [facility] OUTPATIEN INC T OFFICE 47456 WILLIE GIBSON CRI OUTPATIEN 5 5 MD XUAN, T VISIT PSC 25 MINUTES OFFICE 91571 WILLIE GIBSON CRI OUTPATIEN 5 5 MD XUAN, T VISIT [facility] 25 MINUTES [facility] ONELIA - 5 5 [facility] OUTPATIEN INC T OFFICE 50407 ONELIA OUTPATIEN 5 5 [facility] T VISIT INC 10 MINUTES OFFICE 59322 MADAR BUX BUX AN OUTPATIEN 5 5 T [facility] [address] [facility] MARIVEL [place] [facility] 5 5 PHYSICIAN GIN T VISIT S GROUP 15 MINUTES [facility] ONELIA - 5 5 [facility] OUTPATIEN INC T EMERGENCY 90759 ONELIA DUVAL 5 5 [facility] T VISIT P LOW/MODER SEVERITY EMERGENCY [id number] ONELIA 5 5 [facility] T VISIT HIGH/URGE NT SEVERITY OFFICE [id number] [facility] 4 4 NURSE T VISIT PRACTITIO 10 NER GR MINUTES [facility] UNIVERSIT - 4 4 Y [facility] ONELIA - 4 4 [facility] INC T OFFICE [id number] [facility] [place] OUTPATIEN 4 4 PHYSICIAN GIN T VISIT S GROUP 10 MINUTES EMERGENCY [id number] [facility] DEPT 4 4 KEISHA MOH VISIT EMERGENCY HIGH PHYS SEVERITY& THREAT FUNJ EMERGENCY 78129 [facility] KAREEN LISA KAREEN 4 4 DEPARTMEN T VISIT HIGH/URGE NT SEVERITY OFFICE 44443 [facility] OUTPATI[facility] 4 4 T VISIT 15 MINUTES OFFICE 96379 [facility] 4 4 T VISIT 25 MINUTES [facility]OS[facility] - 4 4 [facility] OUT[facility] INC T Emergency TRAE Esposito MD (ER) 3 15:14 3 16:15 [facility]
--- OUTSIDE RECORDS SUMMARY | 2017-07-14 12:48 | External Medical Summary Rpt | CCD ---
Author Author , MELLISSA Organization MELLISSA Address Unknown Phone Care Team Providers Care Director Summer Sessions Name Role Phone ALFARIS MOH, ALFARIS Unavailable [...] Unavailable SIMIN DIVINA, SIMIN Unavailable Unavailable DIV[facility] Unavailable Unavailable INC, [facility] Unavailable Unavailable [facility]PITAL P, [facility], Unavailable Unavailable [facility] Unavailable [place]available [place], [facility] [place] DURANT ANGELLA, DURANT ANGELLA Unavailable Unavailable [facility] Jeanette Esposito MD, Unavailable Unavailable Jeanette Esposito MD [facility] NURSE Unavailable Unavailable PRACTITIONER GR, KMS NURSE [...] Unavailable Unavailable [facility] Unavailable Unavailable [id number] [address] [id number], [facility] [id number] # [phone] GATITO RAFIA, GATITO RAFIA Unavailable Unavailable [facility] Unavailable [facility] JOSE GUADALUPE FOX, JOSE GUADALUPE [...] ORGANISM PLLC R0989 OT SPEC SX 01-02-2016 [place] CIRC & RESP SYS R109 UNSPECIFIED 11-23-2015 [facility] ABDOMINAL PHYSICIANS PAIN GROUP R197 DIARRHEA 11-23-2015 [facility] UNSPECIFIED PHYSICIANS GROUP M5416 RADICULOPAT 10-06-2015 WILLIE GOVEA, HY LUMBAR , [facility] M542 CERVICALGIA 10-06-2015 WILLIE GOVEA MD, PSC M545 LOW BACK 10-06-2015 WILLIE GOVEA, PAIN , PSC [id number] OTHER LONG 10-06-2015 [facility] CURRENT INC DRUG THERAPY 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 UNS CERV REGION 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 08-10-2015 [facility] RAL DISC INC DEGEN LUMBAR REGION 7224 DEGENERATIO 06-15-2015 WILLIE GOVEA, N OF , PSC CERVICAL INTERVERTEB RAL DISC 56307 DEGEN 06-15-2015 WILLIE GOVEA, LUMBAR/LUMB , PSC OSACRAL INTERVERTEB RAL DISC 89540 OSTEOARTHRO 04-13-2015 AMANDA KUNZ UNSPEC WHETHER GEN/LOCALIZ ED HAND 85665 OSTEOARTHRO 04-13-2015 AMANDA KUNZ UNSPEC WHETHER GEN/LOC LOWER LEG 7234 BRACHIAL 04-13-2015 AMANDA GOVEA NEURITIS OR MD RADICULITIS NOS 7244 THORACIC/BEATRIZ 04-13-2015 AMANDA ADAM MD NEURITIS/RA DICULITIS UNSPEC 07868 ABDOMINAL 12-08-2014 [facility] PAIN RIGHT PHYSICIANS UPPER GROUP QUADRANT 4019 UNSPECIFIED 11-27-2014 [facility] P N 25581 DIVERTICULO 11-27-2014 [place] SIS OF MEDICAL COLON [facility] 7802 SYNCOPE AND 11-27-2014 [facility] P 94096 CHEST PAIN 11-27-2014 [place] UNSPECIFIED [facility]ING [facility] 77542 ABDOMINAL 11-27-2014 [place] [facility] OTHER MEDICAL SPECIFIED IMAGING ASS SITE V5832 ENCOUNTER 09-22-2014 [facility] NURSE FOR REMOVAL PRACTITIONE OF SUTURES R GR V6709 FOLLOW-UP 09-22-2014 [facility] NURSE EXAMINATION PRACTITIONE FOLLOWING R GR OTHER SURGERY 7020 ACTINIC 09-09-2014 [facility] V1083 PERSONAL 09-09-2014 [place] [facility] OTHER [facility] MALIGNANT NEOPLASM SKIN 70815 CALCU 04-16-2014 P[facility]IMER GALLBLADD JR GORAN W/OTH CHOLECYST W/O MENTION OBST 70503 CALCU 04-16-2014 [facility] GALLBLADD PHYSICIANS W/O MENTION GROUP CHOLECYST/O BST 5756 CHOLESTEROL 04-16-2014 [facility] OSIS OF JR GORAN GALLBLADDER 5758 OTHER 04-09-2014 [place] SPECIFIED MEDICAL DISORDER OF IMAGING ASS GALLBLADDER 91280 ABDOMINAL 03-30-2014 [place] PA[place], MEDICAL UNSPECIFIED IMAGING ASS SITE 8472 LUMBAR 02-16-2014 LISA KAREEN SPRAIN AND STRAIN E9289 UNSPECIFIED 02-16-2014 LISA KAREEN ACCIDENT 4660 ACUTE 11-27-2013 [facility] BRONCHITIS 496 CHRONIC 11-21-2013 ED[facility] AIRWAY AMILCAR OBSTRUCTION NEC 51236 OTHER 11-21-2013 [facility] DISEASES OF AMILCAR LUNG NOT ELSEWHERE CLASSIFIED 7862 COUGH 11-21-2013 [facility] 69042 OSTEOARTHRO 10-31-2013 [facility] DIAGNOSTICS WHETHER GEN/LOC UNSPEC SITE 63183 PAIN IN 10-31-2013 [facility], DIAGNOSTICS MULTIPLE SITES 250.00 250.00 DIAB 03-10-2013 [facility], TYPE Hospital II OR UNSPEC TYPE, NOT UNCNTRLD 305.1 305.1 03-10-2013 [place] TOBACCO USE [facility] 401.9 401.9 03-10-2013 [facility] 784.0 784.0 03-10-2013 [facility] 787.03 787.03 03-10-2013 [place] VOMITING [facility] 916.4 916.4 03-10-2013 [place] INSECT BITE [facility] & LEG [facility] Allergies, Adverse Reactions, Alerts Type Propensity [...] 2 90 30 HO 40 AL Ac NM 76 -2 -1 0. ME 07 LE [...] PH CE AR CH TA MA AR NM CY LE NO S PH OF F EN CY 5- NT 32 HI 5 AN A LI 68 07 07 0 60 30 HO 60 AL Ac SI 18 -1 -1 0. ME 25 LE ti NO 00 4- 4- 00 TO 77 N ve NM 51 20 20 0 WN 1 BR [...] 93 BL 8 ET # 03 93 NM 00 06 06 0 15 2 RI [...] er -A 2 CE Ac TA ti NM ve NO PH EN 5- 32 5 [...] SQUARE METERS Comment: If this patient is -Burmese, then multiply the Comment: result by 1.210. [...] blood 09:20 platele t mean volume carlos Pleasants % = 7.7 % 1.7-9.3 complet 017 [...] [facility] INC INC RADIOLOGI 72750 [facility] ROUSSEAU C EXAM 6 [facility] CHEST 2 INC INC VIEWS FRONTAL&L ATERAL BASIC 63816 [facility] ROUSSE[facility] METABOLIC 6 [facility] PANEL INC INC CALCIUM TOTAL COLLECTIO 90293 ON[facility] ROUSSEAU N VENOUS 6 [facility] BLOOD INC INC VENIPUNCT URE RADIOLOGI 70843 [facility] C EXAM 6 MEDICAL AMILCAR CHEST 2 IMAGING VIEWS ASS FRONTAL&L ATERAL INJECTION J0696 [facility] DIVINA CEFTRIAXO S GROUP NE SODIUM PER 250 MG INJECTION J1040 [facility] PHYSICIAN DIVINA METHYLPRE S GROUP DNISOLONE ACETATE 80 MG THERAPEUT 17458 [facility] 5 PHYSICIAN DIVINA PROPHYLAC S GROUP TIC/DX INJECTION SUBQ/IM OPIATE G6056 ON[facility] ROUSSE[facility] DRUG AND 5 [facility] METABOLIT INC INC ES EACH PROCEDURE CREATINE 23915 ON[facility] ROUS[facility] KINASE 5 [place] [address] ON[facility] ROUS[facility] LIPASE 5 [place] [address] ON[facility] ROUS[facility] AMYLASE 5 [facility] INC INC CREATINE 11643 ONELIA ROUSSE[facility] KINASE MB 5 [facility] FRACTION INC INC ONLY COMPREHEN 19747 ON[facility]IA ROUSSEAU SIVE 5 [facility] METABOLIC INC INC PANEL GLUC BLD 42984 ONELIA ROUSSEAU GLUC MNTR 5 [facility] DEV INC [place] [address] ON[facility] ROUSSE[facility] TROPONIN 5 MEM HOSP [facility] QUANTITAT INC INC AURE BLOOD 56350 [facility] ROUSSE[facility] COUNT 5 [facility] COMPLETE INC INC AUTO&AUTO DIFRNTL WBC RADIOLOGI 67581 ON[facility] ROUSSEAU C EXAM 5 [facility] CHEST 2 INC INC VIEWS FRONTAL&[place] [address] ON[facility] ROUSSE[facility] ABDOMEN & 5 [facility] PELVIS INC INC W/O CONTRAST MATERIAL URNLS DIP 71499 ONELIA ROUSSEAU 5 [facility] STICK/TAB INC INC [place] [address] [facility] PURDOM SURG 4 Y OF MAT PATHOLOGY [facility] GROSS&DIVINA ROSCOPIC EXAM EXC B9 49608 [place] GATITO RAFIA LESION 4 MEDICAL MRGN XCP SERV SK TG FOUNDATIO T/A/L N 0.6-1.0 CM DESTRUCTI 67905 [place] GAT[place] RAFIA ON 4 MEDICAL PREMALIGN SERV ANT FOUNDATIO LESION N 1ST DESTRUCTI 31127 [place] GAT[place] RAFIA ON 4 MEDICAL PREMALIGN SERV ANT FOUNDATIO LESION N 2-14 EA LEVEL III 37845 PICKLESIM PICKLESIM SURG 4 ER JR GORAN ER JR GORAN PATHOLOGY GROSS&DIVINA ROSCOPIC EXAM PRESSURIZ 88253 ONELIA ROUSSEAU ED/NONPRE 4 [facility] SSURIZED INC INC INHALATIO N TREATMENT LAPAROSCO 48972 [facility] MARIVEL [place] PY SURG 4 PHYSIC[place] [address] [place] HOLDENINEANABELLE ABDOMINAL 4 MEDICAL YANI REAL IMAGING TIME ASS W/[place] [address] [facility] TORRESEDDIE ABDOMEN & 4 MEDICAL AMILCAR PELVIS IMAGING W/CONTRAS ASS T MATERIAL RADIOLOGI 37425 ON[facility] ROUSSE[facility] C EXAM 4 MEM H[facility] CHEST 2 INC INC VIEWS FRONTAL&L ATERAL RHEUMATOI 78133 [facility] D FACTOR 4 DIAGNOSTI DIAGNOSTI QUANTITAT CS CS AURE ANTINUCLE 44225 [facility] AR 4 DIAGNOSTI DIAGNOSTI ANTIBODIE CS CS S CASA CYCLIC 70940 [facility] CITRULLIN 4 DIAGNOSTI DIAGNOSTI ATED CS CS PEPTIDE ANTIBODY C-REACTIV 33928 [facility] E PROTEIN 4 DIAGNOSTI DIAGNOSTI CS CS COLLECTIO 15299 [facility] N VENOUS 4 DIAGNOSTI DIAGNOSTI BLOOD CS CS VENIPUNCT URE Encounters Encounter Start End Date Code Location Performer Type Date EMERGENCY 34250 [facility] 6 [facility] L[facility]MODER SEVERITY EMERGENCY 16302 RAZA PERALES 6 6 [facility] H[facility]URGE NT SEVERITY HOSPITAL ONELIA - 6 6 [facility] OUTPATIEN INC T HOSPITAL ONELIA - 6 6 [facility] OUTPATIEN INC T EMERGENCY 58510 RAZA DUVAL 6 6 PHYSICIAN [facility] DEPARTMEN S, PLLC T VISIT MODERATE SEVERITY OFFICE 12861 [facility] MARIVEL QUEVEDO 6 6 PHYSICIAN GIN T VISIT S GROUP 15 MINUTES OFFICE 08289 [facility] OUTPATIEN 6 6 [facility] T VISIT INC 10 MINUTES OFFICE 26720 WILLIESERENA STUART PO OUTPATIEN 6 6 MD XUAN, T VISIT PSC 15 MINUTES HOSPITAL ONELIA - 6 6 [facility] OUTPATIEN INC T OFFICE 80764 [facility] SIMIN OUTPATIEN 5 5 PHYSICIAN DIVINA T VISIT S GROUP 15 MINUTES HOSPITAL ONELIA - 5 5 [facility] OUTPATIEN INC T OFFICE 57787 WILLIE GIBSON CRI OUTPATIEN 5 5 MD XUAN, T VISIT PSC 25 MINUTES OFFICE 67892 WILLIE GIBSON CRI OUTPATIEN 5 5 MD XUAN, T VISIT [facility] 25 MINUTES [facility] ONELIA - 5 5 MEM HOSP OUTPATIEN INC T OFFICE 13178 ONELIA OUTPATIEN 5 5 [facility] T VISIT INC 10 MINUTES OFFICE 00949 MADAR BUX BUX AN OUTPATIEN 5 5 T [facility] 30 MINUTES OFFICE 39492 [facility] PHYSICIAN GIN T VISIT S GROUP 15 MINUTES [facility] ONELIA - 5 5 [facility] OUTPATIEN INC T EMERGENCY 73732 ONELIA DUVAL 5 5 [facility] T VISIT P LOW/MODER SEVERITY EMERGENCY 95435 ONELIA 5 5 [facility] H[facility] T VISIT HIGH/URGE NT SEVERITY OFFICE 34333 [facility] JOSE [facility]ALUPE [facility] 4 4 NURSE T VISIT PRACTITIO 10 NER GR MINUTES [facility] UNIVERSIT - 4 4 Y [facility] ONELIA - 4 4 [facility] OUTPATIEN INC T OFFICE 86120 [facility] MARIVEL [place] OUTPATIEN 4 4 PHYSICIAN GIN T VISIT S GROUP 10 MINUTES EMERGENCY 35063 [facility] ALFARIS DEPT 4 4 KEISHA MOH VISIT EMERGENCY HIGH PHYS SEVERITY& THREAT FUNJ EMERGENCY 79413 LISA KAREEN LISA KAREEN 4 4 DEPARTMEN T VISIT HIGH/URGE NT SEVERITY OFFICE 39951 [facility] OUTPATIEN 4 4 T VISIT 15 MINUTES OFFICE 85153 [facility] OUTPATIEN 4 4 T VISIT 25 MINUTES HOSPITAL ONELIA - 4 4 [facility] OUTPATIEN INC T Emergency TRAE Esposito MD (ER) 3 15:14 3 16:15 [facility]
--- OUTSIDE RECORDS SUMMARY | 2017-07-14 12:50 | External Medical Summary Rpt | CCD ---
Author Author , MELLISSA Organization MELLISSA Address Unknown Phone [email or web address] Care Team Providers Care Payroll Accounting Clerk Name Role Phone ALFARIS MOH, ALFARIS Unavailable [...] Unavailable SIMIN DIVINA, SIMIN Unavailable Unavailable DIVINA [facility] Unavailable Unavailable INC, [facility] Unavailable Unavailable [facility]PITAL P, [facility], Unavailable Unavailable [facility] Unavailable [place]available [place], [facility] CARLEEN PERALES, CARLEEN PERALES Unavailable Unavailable [facility] Unavailable Unavailable IM[facility]ING [facility], [facility] NURSE Unavailable Unavailable PRACTITIONER GR, KMSF NURSE PRACTITIONER GR [facility] Un[facility] ARTHUR CRI, ARTHUR CRI Unavailable Unavailable AMANDA GOVEA MD, AMANDA Unavailable Unavailable [facility], Unavailable Unavailable [facility], [facility] PICKLESIMER JR GORAN, Unavailable Unavailable PICKLESIMER JR GORAN PICKLESIMER JR GORAN, Unavailable Unavailable [facility] GOR[facility], Unavailable Unavailable [facility], Unavailable Unavailable [facility] LISA KAREEN, LISA KAREEN Unavailable Unavailable LISA KAREEN, LISA KAREEN Unavailable Unavailable [facility] Unavailable Unavailable [id number] # [id number], [facility] [id number] # [id number] GATITO RAFIA, GATITO RAFIA Unavailable Unavailable [facility], Unavailable Unavailable [facility] Unavailable Unavailable [place] [facility] WHITE DOMINIQUE, WHITE DOMINIQUE Unavailable Unavailable Purpose Continuity of Care Document - 10-31-2013 through 2016 Problems Code Diagnosis DOS Provider Status I10 ESSENTIAL 04-08-2016 [facility] HYPERTENSIO INC N J209 ACUTE 04-08-2016 [facility] UNSPECIFIED INC J40 BRONCHITIS 04-08-2016 [facility] NOT PHYSICIANS, SPECIFIED PLLC ACUTE OR CHRONIC Z720 TOBACCO USE 04-08-2016 [facility] INC J189 PNEUMONIA 01-02-2016 [facility] UNSPECIFIED PHYSICIANS, ORGANISM PLLC R0989 OT SPEC SX 01-02-2016 [place] [facility]ING [facility] CIRC & RESP SYS R109 UNSPECIFIED 11-23-2015 [facility] ABDOMINAL PHYSICIANS PAIN GROUP R197 DIARRHEA 11-23-2015 [facility] UNSPECIFIED PHYSICIANS GROUP M5416 RADICULOPAT 10-06-2015 WILLIE GOVEA HY LUMBAR , [facility] M542 CERVICALGIA 10-06-2015 WILLIE GOVEA MD, PSC M545 LOW BACK 10-06-2015 TIARA SIBLEY MD, [facility] [id number] OTHER LONG 10-06-2015 RENAULT TERM [facility] CURRENT INC DRUG THERAPY 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 UNS CERV REGION 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 7224 DEGENERATIO 06-15-2015 WILLIE GOVEA N OF MD, [facility] CERVICAL INTERVERTEB RAL DISC 81415 DEGEN 06-15-2015 WILLIE GOVEA LUMBAR/LUMB , [facility] OSACRAL INTERVERTEB RAL DISC 17278 OSTEOARTHRO 04-13-2015 MADAR BUX SIS UNSPEC WHETHER GEN/LOCALIZ ED HAND 78394 OSTEOARTHRO 04-13-2015 MADAR BUX SIS UNSPEC MD WHETHER GEN/LOC LOWER LEG 7234 BRACHIAL 04-13-2015 AMANDA GOVEA NEURITIS OR RADICULITIS NOS 7244 THORACIC/BEATRIZ 04-13-2015 AMANDA ADAM MD NEURITIS/RA DICULITIS UNSPEC 45808 ABDOMINAL 12-08-2014 [facility] PAIN RIGHT PHYSICIANS UPPER GROUP QUADRANT 4019 UNSPECIFIED 11-27-2014 [facility] P N 73091 DIVERTICULO 11-27-2014 [place] SIS OF MEDICAL COLON IMAGING ASS 7802 SYNCOPE AND 11-27-2014 [facility] P 69669 CHEST PAIN 11-27-2014 [place] UNSPECIFIED [facility]ICAL IMAGING ASS 46854 ABDOMINAL 11-27-2014 [place] PAIN OTHER MEDICAL SPECIFIED IMAGING ASS SITE V5832 ENCOUNTER 09-22-2014 [facility] NURSE FOR REMOVAL PRACTITIONE OF SUTURES R GR V6709 FOLLOW-UP 09-22-2014 [facility] NURSE EXAMINATION PRACTITIONE FOLLOWING R GR OTHER SURGERY 7020 ACTINIC 09-09-2014 [facility] V1083 PERSONAL 09-09-2014 [place] [facility] OTHER [facility] MALIGNANT NEOPLASM SKIN 94664 CALCU 04-16-2014 PICKLESIMER GALLBLADD JR GORAN W/OTH CHOLECYST W/O MENTION OBST 40150 CALCU 04-16-2014 [facility] GALLBLADD PHYSICIANS W/O MENTION GROUP CHOLECYST/O BST 5756 CHOLESTEROL 04-16-2014 PICKLESIMER OSIS OF JR GORAN GALLBLADDER 5758 OTHER 04-09-2014 [place] SPECIFIED MEDICAL DISORDER OF IMAGING ASS GALLBLADDER 76506 ABDOMINAL 03-30-2014 [place] PAIN, MEDICAL UNSPECIFIED IMAGING ASS SITE 8472 LUMBAR 02-16-2014 LISA KAREEN SPRAIN AND STRAIN E9289 UNSPECIFIED 02-16-2014 LISA KAREEN ACCIDENT 4660 ACUTE 11-27-2013 GI HAZEL BRONCHITIS 496 CHRONIC 11-21-2013 EDDIE AIRWAY AMILCAR OBSTRUCTION NEC 14416 OTHER 11-21-2013 EDDIE DISEASES OF AMILCAR LUNG NOT ELSEWHERE CLASSIFIED 7862 COUGH 11-21-2013 [facility] 03366 OSTEOARTHRO 10-31-2013 [facility] DI[facility] WHETHER GEN/LOC UNSPEC SITE 36675 PAIN IN 10-31-2013 [facility], DIAGNOSTICS MULTIPLE SITES Medications Na ND Rx Da Fi Fi Am Da Di Ph RX Ph St me C No te ll ll ou ys ag ar # ys at rm s nt no ma ic us Or Da si cy ia de te s n re d AL 59 06 07 2 90 30 HO 40 AL Ac WV 76 -2 -1 0. ME 07 LE [...] PH CE AR CH TA MA AR PR CY LE NO S PH OF F EN CY 5- NT 32 HI 5 AN A LI 68 07 07 0 60 30 HO 60 AL Ac SI 18 -1 -1 0. ME 25 LE ti NO 00 4 4 00 TO 77 N ve WV 51 20 20 0 WN 1 BR IL 90 14 14 IA -H [address] AR L Z MA 20 CY -1 2. OF 5 MG CY NT TA HI B AN A TR 00 07 07 0 16 4 RI 10 AL Ac AM 09 -0 -0 0. TE 39 LR ti AD 30 9 05 AN ve OL 05 20 20 0 AI 6 80 14 14 D JR HC 1 PH L AR CH 50 MA AR CY LE MG S 03 F TA 93 BL 8 ET # 03 93 WV 00 06 06 0 15 2 RI 10 AL Ac OM 60 -2 -2 0. TE 37 FA ti ET 35 78 RI ve GRIFFIN 43 20 20 0 AI 0 S ZI 82 14 14 D MO NE 1 PH GRIFFIN AR ME 25 MA D CY MG 03 TA 93 BL 8 ET # 03 93 Procedures Procedure DOS Code Location Performer Comment RADIOLOGI 01044 ONELIA ROUSSEAU C EXAM 6 [facility] CHEST 2 INC INC VIEWS FRONTAL&L ATERAL UNCLASSIF J3490 ONELIA ROUSSEAU IED DRUGS 6 [facility] INC INC COLLECTIO 10357 ONELIA ROUSSEAU N VENOUS 6 [facility] BLOOD INC INC VENIPUNCT URE BASIC 17700 ONELIA ROUSSEAU METABOLIC 6 [facility] PANEL INC INC CALCIUM TOTAL RADIOLOGI 83699 [place] EDDIE C EXAM 6 MEDICAL AMILCAR CHEST 2 IMAGING VIEWS ASS FRONTAL&L ATERAL INJECTION J0696 [facility] SIMIN 5 PHYSICIAN DIVINA CEFTRIAXO S GROUP NE SODIUM PER 250 MG INJECTION J1040 [facility] SIMIN 5 PHYSICIAN DIVINA METHYLPRE S GROUP DNISOLONE ACETATE 80 MG THERAPEUT 54102 [facility] SIMIN IC 5 PHYSICIAN DIVINA PROPHYLAC S GROUP TIC/DX INJECTION SUBQ/IM OPIATE G6056 ONELIA ROUSSEAU DRUG AND 5 [facility] HOSP METABOLIT INC INC ES EACH PROCEDURE COMPREHEN 31264 ONELIA ROUSSEAU SIVE 5 [facility] H[facility] MEM [facility]OSP METABOLIC INC INC PANEL RADIOLOGI 29219 [facility] DOMINGUEZEDDIE C EXAM 5 MEDICAL AMILCAR CHEST 2 IMAGING VIEWS ASS FRONTAL&L ATERAL URNLS DIP 74173 ONELIA ROUSSEAU 5 [facility] STICK/TAB INC INC LET REAGENT AUTO MICROSCOP Y CREATINE 21059 ONELIA ROUSSEAU KINASE 5 [facility] [place] [address] ONELIA ROUSSEAU LIPASE 5 [facility] INC INC GLUC BLD 86174 ONELIA ROUSSEAU GLUC MNTR 5 [facility]OS[facility] DEV INC [place] [address] ONELIA ROUSSEAU TROPONIN 5 MEM H[facility] MEM HOSP QUANTITAT INC INC AURE BLOOD 73177 ONELIA ROUSSEAU COUNT 5 [facility]OS[facility] COMPLETE INC INC AUTO&[place] [address] ONELIA ROUSSEAU AMYLASE 5 [facility] INC INC CREATINE 31713 ONELIA ROUSSEAU KINASE MB 5 MEM [facility] [place] [address] [place] EDDIE ABDOMEN & 5 MEDICAL AMILCAR PELVIS IMAGING W/[place] [address] [facility] UNIVERS SURG 4 Y Y PATHOLOGY [facility] GROSS&DIVINA ROSCOPIC EXAM EXC B9 96455 [place] GAT[place] RAFIA LESION 4 MEDICAL MRGN XCP SERV SK TG FOUNDATIO T/A/L N 0.6-1.0 CM DESTRUCTI 62441 [place] RAFIA ON 4 MEDICAL PREMALIGN SERV ANT FOUNDATIO LESION N 1ST DESTRUCTI 58356 [place] RAFIA ON 4 MEDICAL PREMALIGN SERV ANT FOUNDATIO LESION N 2-14 EA LAPAROSCO 62824 [facility] MARIVEL JR PY SURG 4 PHYSICIAN GIN CHOLECYST S GROUP ECTOMY PRESSURIZ 13288 ONELIA ROUSSEAU ED/NONPRE 4 [facility] HOS[facility] SSURIZED INC INC INHALATIO N TREATMENT LEVEL III 16501 PICKLESIM PICKLESIM SURG 4 ER JR GORAN ER JR GORAN PATHOLOGY GROSS&[place] [address] SUZETTE BEINEKE ABDOMINAL 4 MEDICAL YANI REAL IMAGING TIME ASS W/[place] [address] SUZETTE TORRESUTCHER ABDOMEN & 4 MEDICAL AMILCAR PELVIS IMAGING W/CONTRAS ASS T MATERIAL RADIOLOGI 35079 ONELIA Durán EXAM 4 [facility] CHEST 2 INC INC VIEWS FRONTAL&L ATERAL RHEUMATOI 37474 [facility] FACTOR 4 DIAGNOSTI DIAGNOSTI QUANTITAT CS CS AURE COLLECTIO 60115 [facility] N VENOUS 4 DIAGNOSTI DIAGNOSTI BLOOD CS CS VENIPUNCT URE C-REACTIV 49796 [facility] E PROTEIN 4 DIAGNOSTI DIAGNOSTI CS CS ANTINUCLE 53374 [facility] AR 4 DIAGNOSTI DIAGNOSTI ANTIBODIE CS CS S CASA CYCLIC 74910 [facility] CITRULLIN 4 DIAGNOSTI DIAGNOSTI ATED CS CS PEPTIDE ANTIBODY Encounters Encounter Start End Date Code Location Performer Type Date [facility] ONELIA - 6 6 [facility] OUTPATIEN [facility] T EMERGENCY 04007 ONELIA 6 6 [facility] DEPARTMEN [facility] T VISIT LOW/MODER SEVERITY EMERGENCY 03525 RAZA PERALES 6 6 PHYSICIAN [facility] T VISIT HIGH/URGE NT SEVERITY HOSPITAL ONELIA - 6 6 [facility] OUTPATIEN [facility] T EMERGENCY 32310 RAZA DUVAL 6 6 PHYSICIAN [facility] T VISIT MODERATE SEVERITY OFFICE 69501 [facility] MARIVEL QUEVEDO 6 6 PHYSICIAN GIN T VISIT S GROUP 15 MINUTES OFFICE 72852 WILLIE FONTENOT OUTPATIBEN 6 6 MD XUAN, T VISIT [facility] 15 MINUTES OFFICE 36987 ONELIA QUEVEDO 6 6 MEM HOS[facility] T VISIT INC 10 MINUTES HOSPITAL ONELIA - 6 6 [facility] OUTPATIEN INC T OFFICE 11929 [facility] SIMIN OUTPATIEN 5 5 PHYSICIAN DIVINA T VISIT S GROUP 15 MINUTES OFFICE 43507 WILLIE GIBSON CRI OUTPATIEN 5 5 MD XUAN, T VISIT PSC 25 MINUTES HOSPITAL ONELIA - 5 5 [facility] OUTPATIEN INC T OFFICE 84021 WILLIE ARTHUR CRI OUTPATIEN 5 5 MD XUAN, T VISIT PSC 25 MINUTES HOSPITAL ONELIA - 5 5 [facility] OUTPATIEN INC T OFFICE 69784 ON[facility]IA OUTPATIEN 5 5 [facility] HOS[facility] T VISIT INC 10 MINUTES OFFICE 13165 AMANDA XUAN BARTHOLOMEW OUTPATIEN 5 5 MD T NEW 30 MINUTES OFFICE 94346 [facility] MARIVEL [place] OUTPATIEN 5 5 PHYSICIAN GIN T VISIT S GROUP 15 MINUTES EMERGENCY 51309 ONELIA DUVAL 5 5 [facility] T VISIT P LOW/MODER SEVERITY [facility] ONELIA - 5 5 [facility] OUTPATIEN [facility] T EMERGENCY 50382 ONELIA 5 5 [facility] T VISIT HIGH/URGE NT SEVERITY OFFICE 63457 [facility] JOSE GUADALUPE FOX OUTPATIEN 4 4 NURSE T VISIT PRACTITIO 10 NER GR MINUTES HOSPITAL UNIVERSIT - 4 4 Y [facility] ONELIA - 4 4 MEM HOSP OUTPATIEN INC T OFFICE 48912 [facility] MARIVEL [place] OUTPATIEN 4 4 PHYSICIAN GIN T VISIT S GROUP 10 MINUTES EMERGENCY 50159 [facility] ALFARIS DEPT 4 4 [facility] VISIT EMERGENCY HIGH PHYS SEVERITY& THREAT FUNCJ EMERGENCY 02396 LISA KAREEN LISA KAREEN 4 4 [facility] T VISIT HIGH/URGE NT SEVERITY OFFICE 64399 GI LOTTI OUTPATIEN 4 4 T VISIT 15 MINUTES OFFICE 81554 GI OLIVA OUTPATIBEN 4 4 T VISIT 25 MINUTES [facility] ONELIA - 4 4 [facility] OUTPATIEN [facility] T
--- OUTSIDE RECORDS SUMMARY | 2017-07-14 12:50 | External Medical Summary Rpt | CCD ---
Author Author , MELLISSA Organization MELLISSA Address Unknown Phone [email or web address] Care Team Providers Care Manager Financial Reporting Name Role Phone ALFARIS MOH, ALFARIS Unavailable [...] INC, [facility] HOSP INC [facility] Un[facility] Un[facility] P, [facility], Unavailable [facility]available [facility] Unavailable Unavailable [place], [facility] CARLEEN PERALES, CARLEEN PERALES Unavailable Unavailable [facility] Unavailable Unavailable IMAGING ASS, [facility] NURSE Unavailable Unavailable PRACTITIONER GR, KMSF NURSE [...] Unavailable Unavailable [facility] Unavailable Unavailable [id number] # 0393, [facility] [address] # 0393 GATITO RAFIA, GATITO RAFIA Unavailable Unavailable [facility], Unavailable Unavailable [facility] Unavailable Unavailable [place] [facility] WHITE DOMINIQUE, WHITE DOMINIQUE Unavailable Unavailable Purpose Continuity of Care Document - 10-31-2013 through 2016 Problems Code Diagnosis DOS Provider Status I10 ESSENTIAL 04-08-2016 [facility] HYPERTENSIO INC N J209 ACUTE 04-08-2016 [facility] UNSPECIFIED INC J40 BRONCHITIS 04-08-2016 [facility] NOT PHYSICIANS, SPECIFIED PLLC ACUTE OR CHRONIC Z720 TOBACCO USE 04-08-2016 [facility] INC J189 PNEUMONIA 01-02-2016 [facility] UNSPECIFIED PHYSICIANS, ORGANISM PLLC R0989 OT SPEC SX 01-02-2016 [place] [facility] IN[facility] THE IMAGING ASS CIRC & RESP SYS R109 UNSPECIFIED 11-23-2015 [facility] ABDOMINAL PHYSICIANS PAIN GROUP R197 DIARRHEA 11-23-2015 [facility] UNSPECIFIED PHYSICIANS GROUP M5416 RADICULOPAT 10-06-2015 WILLIE GOVEA HY LUMBAR , [facility] M542 CERVICALGIA 10-06-2015 WILLIE GOVEA MD, PSC M545 LOW BACK 10-06-2015 TIARA SIBLEY MD, [facility] H45300 OTHER LONG 10-06-2015 [facility] CURRENT INC DRUG THERAPY 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 UNS CERV REGION 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 7224 DEGENERATIO 06-15-2015 WILLIE GOVEA N OF MD, [facility] CERVICAL INTERVERTEB RAL DISC 66006 DEGEN 06-15-2015 WILLIE GOVEA LUMBAR/LUMB , [facility] OSACRAL INTERVERTEB RAL DISC 21940 OSTEOARTHRO 04-13-2015 MADAR BUX SIS UNSPEC WHETHER GEN/LOCALIZ ED HAND 74012 OSTEOARTHRO 04-13-2015 MADAR BUX SIS UNSPEC MD WHETHER GEN/LOC LOWER LEG 7234 BRACHIAL 04-13-2015 AMANDA GOVEA NEURITIS OR RADICULITIS NOS 7244 THORACIC/BEATRIZ 04-13-2015 AMANDA ADAM MD NEURITIS/RA DICULITIS UNSPEC 79078 ABDOMINAL 12-08-2014 [facility] PAIN RIGHT PHYSICIANS UPPER GROUP QUADRANT 4019 UNSPECIFIED 11-27-2014 [facility] P N 21107 DIVERTICULO 11-27-2014 [place] SIS OF MEDICAL COLON IMAGING ASS 7802 SYNCOPE AND 11-27-2014 [facility] P 96064 CHEST PAIN 11-27-2014 [place] UNSPECIFIED [facility]ICAL IM[facility]ING ASS 07881 ABDOMINAL 11-27-2014 [place] PAIN OTHER MEDICAL SPECIFIED IMAGING ASS SITE V5832 ENCOUNTER 09-22-2014 [facility] NURSE FOR REMOVAL PRACTITIONE OF SUTURES R GR V6709 FOLLOW-UP 09-22-2014 [facility] NURSE EXAMINATION PRACTITIONE FOLLOWING R GR OTHER SURGERY 7020 ACTINIC 09-09-2014 [facility] HOS[facility] V1083 PERSONAL 09-09-2014 [place] [facility] OTHER [facility]OUND[facility] MALIGNANT NEOPLASM SKIN 96811 CALCU 04-16-2014 PICKLESIMER GALLBLADD JR GORAN W/OTH CHOLECYST W/O MENTION OBST 03447 CALCU 04-16-2014 [facility] GALLBLADD PHYSICIANS W/O MENTION GROUP CHOLECYST/O BST 5756 CHOLESTEROL 04-16-2014 PICKLESIMER OSIS OF JR GORAN GALLBLADDER 5758 OTHER 04-09-2014 [place] SPECIFIED MEDICAL DISORDER OF IMAGING ASS GALLBLADDER 04370 ABDOMINAL 03-30-2014 [place] PAIN, MEDICAL UNSPECIFIED IMAGING ASS SITE 8472 LUMBAR 02-16-2014 LISA KAREEN SPRAIN AND STRAIN E9289 UNSPECIFIED 02-16-2014 LISA KAREEN ACCIDENT 4660 ACUTE 11-27-2013 GI HAZEL BRONCHITIS 496 CHRONIC 11-21-2013 EDD[facility] AIRWAY AMILCAR OBSTRUCTION NEC 04430 OTHER 11-21-2013 EDDIE DISEASES OF AMILCAR LUNG NOT ELSEWHERE CLASSIFIED 7862 COUGH 11-21-2013 [facility] 99642 OSTEOARTHRO 10-31-2013 [facility] DIAG[facility]ICS WHETHER GEN/LOC UNSPEC SITE 35808 PAIN IN 10-31-2013 [facility] JOINT, DIAGNOSTICS MULTIPLE [...] 2 90 30 HO 40 AL Ac NC 76 -2 -1 0. ME 07 LE [...] PH CE AR CH TA MA AR AK CY LE NO S PH OF F EN CY 5- NT 32 HI 5 AN A LI 68 07 07 0 60 30 HO 60 AL Ac SI 18 -1 -1 0. ME 25 LE ti NO 00 4 4 00 TO 77 N ve NC 51 20 20 0 WN 1 BR [...] 93 BL 8 ET # 03 93 NC 00 06 06 0 15 2 RI [...] Procedure DOS Code Location Performer Comment RADIOLOGI 97663 ONELIA ROUSSEAU C EXAM 6 [facility] CHEST 2 INC INC VIEWS FRONTAL&L ATERAL UNCLASSIF J3490 ONELIA ROUSSEAU IED DRUGS 6 [facility] INC INC COLLECTIO 74769 ONELIA ROUSSEAU N VENOUS 6 [facility] BLOOD INC INC VENIPUNCT URE BASIC 53640 ONELIA ROUSSEAU METABOLIC 6 [facility] PANEL INC INC CALCIUM TOTAL RADIOLOGI 26726 [place] EDDIE C EXAM 6 MEDICAL AMILCAR CHEST 2 IMAGING VIEWS ASS FRONTAL&L ATERAL INJECTION J0696 [facility] SIMIN 5 PHYSICIAN DIVINA CEFTRIAXO S GROUP NE SODIUM PER 250 MG INJECTION J1040 [facility] SIMIN 5 PHYSICIAN DIVINA METHYLPRE S GROUP DNISOLONE ACETATE 80 MG THERAPEUT 48404 [facility] SIMIN IC 5 PHYSICIAN DIVINA PROPHYLAC S GROUP TIC/DX INJECTION SUBQ/IM OPIATE G6056 ONELIA ROUSSEAU DRUG AND 5 [facility] METABOLIT INC INC ES EACH PROCEDURE COMPREHEN 49486 ONELIA ROUSSEAU SIVE 5 [facility] H[facility]OS[facility] METABOLIC INC INC PANEL RAD[facility]OLOGI 82549 [facility] DOMINGUE[facility] C EXAM 5 MEDICAL AMILCAR CHEST 2 IMAGING VIEWS ASS FRONTAL&L ATERAL URNLS DIP 09525 ONELIA ROUSSEAU 5 [facility] HOS[facility] STICK/TAB INC INC LET REAGENT AUTO MICROSCOP Y CREATINE 62523 ONELIA ROUSSEAU KINASE 5 [facility] [place] [address] ONELIA ROUSSEAU LIPASE 5 [facility] INC INC GLUC BLD 43098 ONELIA ROUSSEAU GLUC MNTR 5 [facility]OS[facility] DEV INC [place] [address] ONELIA ROUSSEAU TROPONIN 5 MEM HOS[facility] MEM HOSP QUANTITAT INC INC AURE BLOOD 37009 ONELIA ROUSSEAU COUNT 5 [facility] COMPLETE INC INC AUTO&[place] [address] ONELIA ROUSSEAU AMYLASE 5 [facility]OS[facility] INC INC CREATINE 19527 ONELIA ROUSSEAU KINASE MB 5 [facility] [place] [address] [place] ABDOMEN & 5 MEDICAL AMILCAR PELVIS IMAGING W/[place] [address] [facility] UNIVERS SURG 4 Y Y PATHOLOGY [facility] GROSS&DIVINA ROSCOPIC EXAM EXC B9 75563 [place] RAF[place] LESION 4 MEDICAL MRGN XCP SERV SK TG FOUNDATIO T/A/L N 0.6-1.0 CM DESTRUCTI 81228 [place] RAFIA ON 4 MEDICAL PREMALIGN SERV ANT FOUNDATIO LESION N 1ST DESTRUCTI 39436 [place] RAFIA ON 4 MEDICAL PREMALIGN SERV ANT FOUNDATIO LESION N 2-14 EA LAPAROSCO 63029 [facility] MARIVEL JR PY SURG 4 PHYSICIAN GIN CHOLECYST S GROUP ECTOMY PRESSURIZ 22842 ONELIA ROUSSEAU ED/NONPRE 4 [facility] SSURIZED INC INC INHALATIO N TREATMENT LEVEL III 16188 PICKLESIM PICKLESIM SURG 4 ER JR GORAN ER JR GORAN PATHOLOGY GROSS[place] [address] SUZETTE BEINEKE ABDOMINAL 4 MEDICAL YANI REAL IMAGING TIME ASS W/[place] [address] SUZETTE TORRESUTCHER ABDOMEN & 4 MEDICAL AMILCAR PELVIS IMAGING W/CONTRAS ASS T MATERIAL RADIOLOGI 03479 ONELIA Durán EXAM 4 [facility] CHEST 2 INC INC VIEWS FRONTAL&L ATERAL RHEUMATOI 41928 [facility] FACTOR 4 DIAGNOSTI DIAGNOSTI QUANTITAT CS CS AURE COLLECTIO 26918 [facility] N VENOUS 4 DIAGNOSTI DIAGNOSTI BLOOD CS CS VENIPUNCT URE C-REACTIV 60584 [facility] E PROTEIN 4 DIAGNOSTI DIAGNOSTI CS CS ANTINUCLE 65085 [facility] AR 4 DIAGNOSTI DIAGNOSTI ANTIBODIE CS CS S CASA CYCLIC 65450 [facility] CITRULLIN 4 DIAGNOSTI DIAGNOSTI ATED CS CS PEPTIDE ANTIBODY Encounters Encounter Start End Date Code Location Performer Type Date [facility] ONELIA - 6 6 [facility] OUTPATIEN [facility] T EMERGENCY 11391 ONELIA 6 6 [facility] DEPARTMEN [facility] T VISIT LOW/MODER SEVERITY EMERGENCY 39050 RAZA PERALES [address] [facility] T VISIT HIGH/URGE NT SEVERITY HOSPITAL ONELIA - 6 6 [facility] OUTPATIEN [facility] T EMERGENCY 99440 RAZA DUVAL 6 6 [facility]IAN [facility] T VISIT MODERATE SEVERITY OFFICE 75858 [facility] MARIVEL QUEVEDO 6 6 PHYSICIAN GIN T VISIT S GROUP 15 MINUTES OFFICE 96881 WILLIE FONTENOT OUTPATIBEN 6 6 MD XUAN, T VISIT [facility] 15 MINUTES OFFICE 19351 ONELIA QUEVEDO 6 6 [facility] 10 MINUTES HOSPITAL ONELIA - 6 6 [facility] OUTPATIEN INC T OFFICE 46303 [facility] SIMIN OUTPATIEN 5 5 PHYSICIAN DIVINA T VISIT S GROUP 15 MINUTES OFFICE 99364 WILLIE GIBSON CRI OUTPATIEN 5 5 MD XUAN, T VISIT [facility] 25 MINUTES [facility]OSP[facility] ONELIA - 5 5 [facility] OUT[facility] INC T OFFICE 43513 WILLIE ARTHUR CRI OUTPATIEN 5 5 MD XUAN, T VISIT PSC 25 MINUTES HOSPITAL ONELIA - 5 5 [facility] T OFFICE 32544 ONELIA OUTPATIEN 5 5 [facility] T VISIT INC 10 MINUTES OFFICE 75454 AMANDA XUAN BARTHOLOMEW OUTPATIEN 5 5 MD T NEW 30 MINUTES OFFICE 57373 [facility] MARIVEL [place] OUTPATIEN 5 5 PHYSICIAN GIN T VISIT S GROUP 15 MINUTES EMERGENCY 62650 ONELIA DUVAL 5 5 [facility] T VISIT P LOW/MODER SEVERITY [facility] ONELIA - 5 5 [facility] OUTPATIEN [facility] T EMERGENCY 40607 ONELIA 5 5 [facility] T VISIT HIGH/URGE NT SEVERITY OFFICE 09272 [facility] JOSE GUADALUPE FOX OUTPATIEN 4 4 NURSE T VISIT PRACTITIO 10 NER GR MINUTES HOSPITAL UNIVERSIT - 4 4 Y [facility] ONELIA - 4 4 [facility] OUTPATIEN INC T OFFICE 04977 [facility] MARIVEL [place] OUTPATIEN 4 4 PHYSICIAN GIN T VISIT S GROUP 10 MINUTES EMERGENCY 81693 [facility] DEPT 4 4 [facility] VISIT EMERGENCY HIGH PHYS SEVERITY& THREAT FUNCJ EMERGENCY 81410 LISA KAREEN LISA KAREEN 4 4 [facility] T VISIT HIGH/URGE NT SEVERITY OFFICE 19473 [facility] LOTTI OUTPATIEN 4 4 T VISIT 15 MINUTES OFFICE 79061 GI OLIVA OUTPATIBEN 4 4 T VISIT 25 MINUTES [facility] ONELIA - 4 4 [facility] T
--- OUTSIDE RECORDS SUMMARY | 2017-07-14 12:50 | External Medical Summary Rpt | CCD ---
Demographics Preferred Language Occitan Marital Status Unknown Caodaism Affiliation Unknown Race Unknown Ethnic Group Unknown Author Author , MELLISSA MALLOY Address Unknown Phone Immunization No patient found.
--- OUTSIDE RECORDS SUMMARY | 2017-07-14 12:50 | External Medical Summary Rpt | CCD ---
Demographics Preferred Language Tajik Marital Status Unknown Hindu Affiliation Unknown Race Unknown Ethnic Group Unknown Author Author , MELLISSA MALLOY Address Unknown Phone Immunization No patient found.
--- OUTSIDE RECORDS SUMMARY | 2017-07-14 12:51 | External Medical Summary Rpt ---
Author Author MELLISSA Vang, [employer] Organization [employer] Address Unknown Phone Unavailable Results Lactate [Moles/volume] in Blood Observa Value Referen Units Interpr Notes Date tion ce etation Range Lactate 0.4 - 2.0 mmol/L Normal No Jul 08 [Moles/vo informati 2016 9:20 lume] in on in AM Blood source data CBC W Auto Differential panel in Blood Observa Value Referen Units Interpr Notes Date tion ce etation Range Basophils 0 - 0.2 K/MM3 Normal No Jul 08 inform2016 9:20 [#/volume on in AM ] in source Blood by data Automated count Basophils 0.1 - 2.0 % Normal No Jul 08 informati 2016 9:20 leukocyte on in AM s in source Blood by data Automated count Eosinophi 0.0 - 0.4 K/mm3 Normal No Jul 08 ls informati 2016 9:20 [#/volume on in AM ] in source Blood by data Automated count Eosinophi 0.1 - % Normal No Jul 08 ls/100 12.0 informati 2016 9:20 leukocyte on in AM s in source Blood by data Automated count Granulocy 1.3 - 8.0 K/mm3 Normal No Jul 08 anton informati 2016 9:20 [#/volume on in AM ] in source Blood by data Automated count Granulocy 37.0 - % Normal No Jul 08 anton/100 80.0 informati 2016 9:20 leukocyte on in AM s in source Blood by data Automated count Hematocri 42.0 - % Normal No Jul 08 t [Volume 52.0 informati 2016 9:20 on in AM Fraction] source of Blood data Hemoglobi 14.1 - g/dL Normal No Jul 08 n 18.0 informati 2016 9:20 [Mass/vol on in AM ume] in source Blood data Lymphocyt 0.7 - 4.5 K/mm3 Normal No Jul 08 es informati 2016 9:20 [#/volume on in AM ] in source Unspecifi data ed specimen by Automated count Lymphocyt 10 - 50 % Normal No Jul 08 es informati 2016 9:20 [#/volume on in AM ] in source Unspecifi data ed specimen by Automated count Erythrocy 27 - 31.2 pg High No Jul 08 te mean inform2016 9:20 corpuscul on in AM ar source hemoglobi data n [Entitic mass] Erythrocy 31.8 - g/dl Normal No Jul 08 te mean 35.4 informati 2016 9:20 corpuscul on in AM ar source hemoglobi data n concentra tion [Mass/vol ume] by Automated count Erythrocy 82.2 - fl High No Jul 08 te mean 97.8 informati 2016 9:20 corpuscul on in AM ar volume source [Entitic data volume] by Automated count Monocytes 0.1 - 1.0 K/mm3 Normal No Jul 08 inform2016 9:20 [#/volume on in AM ] in source Blood by data Automated count Monocytes 1.7 - 9.3 % Normal No Jul 08 /100 informati 2016 9:20 leukocyte on in AM s in source Blood by data Automated count Platelet 7.4 - fl Normal No Jul 08 mean 10.4 informati 2016 9:20 volume on in AM [Entitic source volume] data in Blood by Automated count Platelets 142 - 424 K/mm3 Normal No Jul 08 inform2016 9:20 [#/volume on in AM ] in source Blood data Erythrocy 4.6 - 6.2 M/mm3 Normal No Jul 08 anton informati 2016 9:20 [#/volume on in AM ] in source Amniotic data fluid Erythrocy 11.5 - % Normal No Jul 08 te 17.5 informati 2016 9:20 distribut on in AM ion width source [Entitic data volume] by Automated count Leukocyte 4.8 - K/MM3 Normal No Jul 08 s 10.8 informati 2016 9:20 [#/volume on in AM ] in source Blood data Drugs identified in Urine by Screen method Observa Value Referen Units Interpr Notes Date tion ce etation Range Positive urine drug screen samples are stored for 7 days. Contact the Lab if confirmation of positives is needed. Ampheta NEGATIV <1000 ng/mL No No Apr 19 mine E informa informa 2016 [Presen tion in tion in 9:35 AM ce] in source source Urine data data by Screen method Barbitura <200 ng/mL No No Apr 19 anton informati informati 2017 9:35 [Mass/vol on in on in AM ume] in source source Urine by data data Screen method Benzodiaz 200 ng/mL ng/mL High This is Apr 19 epines an 2017 9:35 [Mass/vol UNCONFIRM AM ume] in ED Serum or result. Plasma by This Screen result is method for medicalpu rposes and/or treatment only. Cocaine <300 ng/g No No Apr 19 [Mass/vol informati informati 2016 9:35 ume] in on in on in AM Unspecifi source source ed data data specimen Methadone <300 ng/mL No No Apr 19 informati informati 2016 9:35 [Mass/vol on in on in AM ume] in source source Unspecifi data data ed specimen Opiates <300 ng/mL High This is Apr 19 [Mass/vol an 2016 9:35 ume] in UNCONFIRM AM Unspecifi ED ed result. specimen This result is for medicalpu rposes and/or treatment only. Phencycli <25 ng/mL No No Apr 19 dine informati informati 2016 9:35 [Mass/vol on in on in AM ume] in source source Unspecifi data data ed specimen 11-Hydr NEGATIV <50 ng/mL No No Apr 19 oxy E informa informa 2017 delta-9 tion in tion in 9:35 AM source source tetrahy data data drocann abinol [Presen ce] in Unspeci fied specime n Urinalysis dipstick W Reflex Microscopic panel in Urine Observa Value Referen Units Interpr Notes Date tion ce etation Range Appeara Clear CLEAR No No No Apr 09 nce of informa informa informa 2017 Urine tion in tion in tion in 3:25 PM source source source data data data Bacteri 3+ O No No No Apr 09 a informa informa informa 2016 [Presen tion in tion in tion in 3:25 PM ce] in source source source Urine data data data sedimen t by Light microsc opy Bilirub NEGATIV NEG No No No Apr 09 in E informa informa informa 2016 [Presen tion in tion in tion in 3:25 PM ce] in source source source Urine data data data by Test strip Erythro NEGATIV NEG No No No Apr 09 cytes E informa informa informa 2017 [Presen tion in tion in tion in 3:25 PM ce] in source source source Urine data data data Color YELLOW YELLOW No No No Apr 09 of informa informa informa 2017 Urine tion in tion in tion in 3:25 PM source source source data data data Glucose NEG No No No Apr 09 [Mass/vol informati informati informati 2017 3:25 ume] in on in on in on in PM Urine by source source source Test data data data strip Hyaline 5-10 NONE #/lpf No No Apr 09 casts informa informa 2016 [Presen tion in tion in 3:25 PM ce] in source source Urine data data sedimen t by Light microsc opy Ketones NEGATIV NEG mg/dL No No Apr 09 E informa informa 2016 [Presen tion in tion in 3:25 PM ce] in source source Urine data data by Automat ed test strip Mucus NEGATIV NEG No No No Apr 09 [Presen E informa informa informa 2017 ce] in tion in tion in tion in 3:25 PM Urine source source source sedimen data data data t by Light microsc opy Mucus 1+ NONE No No No Apr 09 [Presen informa informa informa 2017 ce] in tion in tion in tion in 3:25 PM Urine source source source sedimen data data data t by Light microsc opy Nitrite NEGATIV NEG No No No Apr 09 E informa informa informa 2016 [Presen tion in tion in tion in 3:25 PM ce] in source source source Urine data data data by Test strip pH of 5.0 - 8.5 No Normal No Apr 09 Urine informati informati 2017 3:25 on in on in PM source source data data Protein NEG mg/dL High No Apr 09 [Mass/vol informati 2017 3:25 ume] in on in PM Urine by source Automated data test strip Specific 1.005 - No Normal No Apr 09 gravity 1.030 informati informati 2017 3:25 of Urine on in on in PM source source data data Epithel 3-5 OCC #/hpf No No Apr 09 ial informa informa 2017 cells.s tion in tion in 3:25 PM quamous source source data data [Presen ce] in Urine sedimen t by Microsc opy high power field Urobili 0.2 NEG E.U./dL No No Apr 09 nogen informa informa 2016 [Presen tion in tion in 3:25 PM ce] in source source Urine data data by Test strip Leukocy [3 O wbc/hpf No No Apr 09 anton wbc/hpf informa informa 2016 [#/volu ; 5 tion in tion in 3:25 PM me] in wbc/hpf source source Urine ] data data Urinalysis dipstick W Reflex Microscopic panel in Urine Observa Value Referen Units Interpr Notes Date tion ce etation Range Appeara Clear CLEAR No No No Apr 09 nce of informa informa informa 2016 Urine tion in tion in tion in 3:25 PM source source source data data data Bilirub NEGATIV NEG No No No Apr 09 in E informa informa informa 2016 [Presen tion in tion in tion in 3:25 PM ce] in source source source Urine data data data by Test strip Erythro NEGATIV NEG No No No Apr 09 cytes E informa informa informa 2016 [Presen tion in tion in tion in 3:25 PM ce] in source source source Urine data data data Color YELLOW YELLOW No No No Apr 09 of informa informa informa 2016 Urine tion in tion in tion in 3:25 PM source source source data data data Glucose NEG No No No Apr 09 [Mass/vol informati informati informati 2016 3:25 ume] in on in on in on in PM Urine by source source source Test data data data strip Ketones NEGATIV NEG mg/dL No No Apr 09 E informa informa 2016 [Presen tion in tion in 3:25 PM ce] in source source Urine data data by Automat ed test strip Mucus NEGATIV NEG No No No Apr 09 [Presen E informa informa informa 2016 ce] in tion in tion in tion in 3:25 PM Urine source source source sedimen data data data t by Light microsc opy Nitrite NEGATIV NEG No No No Apr 09 E informa informa informa 2016 [Presen tion in tion in tion in 3:25 PM ce] in source source source Urine data data data by Test strip pH of 5.0 - 8.5 No Normal No Apr 09 Urine informati informati 2017 3:25 on in on in PM source source data data Protein NEG mg/dL High No Apr 09 [Mass/vol informati 2017 3:25 ume] in on in PM Urine by source Automated data test strip Specific 1.005 - No Normal No Apr 09 gravity 1.030 informati informati 2017 3:25 of Urine on in on in PM source source data data Urobili 0.2 NEG E.U./dL No No Apr 09 nogen informa informa 2016 [Presen tion in tion in 3:25 PM ce] in source source Urine data data by Test strip Comprehensive metabolic 2000 panel in Serum or Plasma Observa Value Referen Units Interpr Notes Date tion ce etation Range Albumin/G 1.1 - 1.8 No Normal No Apr 09 lobulin informati informati 2016 2:32 [Mass on in on in PM ratio] in source source Serum or data data Plasma Albumin 3.4 - 5.0 gm/dL Normal No Apr 09 [Mass/vol informati 2017 2:32 ume] in on in PM Serum or source Plasma data Alkaline 46 - 116 U/L Normal No Apr 09 phosphata informati 2017 2:32 se on in PM [Enzymati source c data activity/ volume] in Serum or Plasma Bilirubin 0.2 - 1.0 mg/dL Normal No Apr 09 .total informati 2016 2:32 [Mass/vol on in PM ume] in source Serum or data Plasma Urea 7 - 18 mg/dL Normal No Apr 09 nitrogen informati 2017 2:32 [Mass/vol on in PM ume] in source Serum or data Plasma Calcium 8.5 - mg/dL Normal No Apr 09 [Mass/vol 10.1 informati 2017 2:32 ume] in on in PM Serum or source Plasma data Chloride 98 - 107 mmoL/L Normal No Apr 09 [Moles/vo informati 2017 2:32 lume] in on in PM Serum or source Plasma data Carbon 21.0 - mmoL/L Normal No Apr 09 dioxide, 32.0 informati 2017 2:32 total on in PM [Moles/vo source lume] in data Serum or Plasma Creatinin 0.70 - mg/dL High No Apr 09 e 1.30 informati 2016 2:32 [Mass/vol on in PM ume] in source Serum or data Plasma Creatinin 50 - 200 ML/MIN Normal No Apr 09 e renal informati 2016 2:32 clearance on in PM source predicted data by Cockcroft -Gault formula Estimated >60 ML/MIN No REFERENCE Apr 09 informati RANGE: 2017 2:32 glomerula on in >60 PM r source ML/MIN/1. filtratio data 73 SQUARE n rate METERSIf (GF this patient is -A merican, then multiply theresult by 1.210. Globulin 1.3 - 3.2 gm/dL High No Apr 09 [Mass/vol informati 2016 2:32 ume] in on in PM Serum source data Glucose 74 - 106 mg/dL Normal No Apr 09 [Mass/vol informati 2016 2:32 ume] in on in PM Serum or source Plasma data Potassium 3.5 - 5.1 mmoL/L Normal No Apr 092016 2:32 [Moles/vo on in PM lume] in source Serum or data Plasma Sodium 136 - 145 mmoL/L Normal No Apr 09 [Moles/vo ati 2016 2:32 lume] in on in PM Serum or source Plasma data Aspartate 15 - 37 U/L Normal No Apr 09 inform2016 2:32 aminotran on in PM sferase source [Enzymati data c activity/ volume] in Serum or Plasma Alanine 12 - 78 U/L Normal No Apr 09 aminotran 2016 2:32 sferase on in PM [Enzymati source c data activity/ volume] in Serum or Plasma Protein 6.4 - 8.2 gm/dL Normal No Apr 09 [Mass/vol informati 2016 2:32 ume] in on in PM Serum or source Plasma data CBC W Auto Differential panel in Blood Observa Value Referen Units Interpr Notes Date tion ce etation Range Basophils 0 - 0.2 K/MM3 Normal No Apr 09 inform2016 2:32 [#/volume on in PM ] in source Blood by data Automated count Basophils 0.1 - 2.0 % Normal No Apr 09 /100 informati 2017 2:32 leukocyte on in PM s in source Blood by data Automated count Eosinophi 0.0 - 0.4 K/mm3 Normal No Apr 09 ls informati 2016 2:32 [#/volume on in PM ] in source Blood by data Automated count Eosinophi 0.1 - % Normal No Apr 09 ls/100 12.0 informati 2016 2:32 leukocyte on in PM s in source Blood by data Automated count Granulocy 1.3 - 8.0 K/mm3 Normal No Apr 09 anton informati 2016 2:32 [#/volume on in PM ] in source Blood by data Automated count Granulocy 37.0 - % Normal No Apr 09 anton/100 80.0 informati 2016 2:32 leukocyte on in PM s in source Blood by data Automated count Hematocri 42.0 - % Normal No Apr 09 t [Volume 52.0 informati 2016 2:32 on in PM Fraction] source of Blood data Hemoglobi 14.1 - g/dL Normal No Apr 09 n 18.0 informati 2016 2:32 [Mass/vol on in PM ume] in source Blood data Lymphocyt 0.7 - 4.5 K/mm3 Normal No Apr 09 es informati 2016 2:32 [#/volume on in PM ] in source Unspecifi data ed specimen by Automated count Lymphocyt 10 - 50 % Normal No Apr 09 es informati 2016 2:32 [#/volume on in PM ] in source Unspecifi data ed specimen by Automated count Erythrocy 27 - 31.2 pg High No Apr 09 te mean informati 2016 2:32 corpuscul on in PM ar source hemoglobi data n [Entitic mass] Erythrocy 31.8 - g/dl Normal No Apr 09 te mean 35.4 informati 2016 2:32 corpuscul on in PM ar source hemoglobi data n concentra tion [Mass/vol ume] by Automated count Erythrocy 82.2 - fl High No Apr 09 te mean 97.8 informati 2017 2:32 corpuscul on in PM ar volume source [Entitic data volume] by Automated count Monocytes 0.1 - 1.0 K/mm3 Normal No Apr 09 informati 2016 2:32 [#/volume on in PM ] in source Blood by data Automated count Monocytes 1.7 - 9.3 % Normal No Apr 09 / informati 2017 2:32 leukocyte on in PM s in source Blood by data Automated count Platelet 7.4 - fl Normal No Apr 09 mean 10.4 informati 2016 2:32 volume on in PM [Entitic source volume] data in Blood by Automated count Platelets 142 - 424 K/mm3 Normal No Apr 09 informati 2017 2:32 [#/volume on in PM ] in source Blood data Erythrocy 4.6 - 6.2 M/mm3 Low No Apr 09 anton informati 2016 2:32 [#/volume on in PM ] in source Amniotic data fluid Erythrocy 11.5 - % Normal No Apr 09 te 17.5 informati 2016 2:32 distribut on in PM ion width source [Entitic data volume] by Automated count Leukocyte 4.8 - K/MM3 Normal No Apr 09 s 10.8 informati 2017 2:32 [#/volume on in PM ] in source Blood data
--- OUTSIDE RECORDS SUMMARY | 2017-07-14 12:51 | External Medical Summary Rpt ---
Author Author MELLISSA Vang, [employer] Organization [employer] Address Unknown Phone [...]
== END ==
LOC: ER 09:04
PROVIDERS: Emergency Medicine
DX: J20.9 Acute bronchitis, unspecified (principal); I10 Essential (primary) hypertension; F17.210 Nicotine dependence, cigarettes, uncomplicated; Z88.1 Allergy status to other antibiotic agents

== ENCOUNTER → 2017-07-18 | Outpatient (CLI) | payer MEDICARE ==
[2017-07-18 13:45] LABS: AMPHETAMINES/METAMPHETAMINES NEGATIVE ng/mL (<1000)
[2017-07-26 03:38] LABS: Codeine Positive (.); Hydrocodone Negative (Cutoff=100); Hydromorphone Negative (Cutoff=100); Morphine Positive (.); Opiates Positive (.)
== END ==
LOC: LAB 12:49
PROVIDERS: Emergency Medicine
DX: Z79.899 Other long term (current) drug therapy (principal)